=== PATIENT | male | born 1950 | race Caucasian/White ===

== ENCOUNTER → 2023-11-27 08:11 | Outpatient (REF) | payer MEDICARE, SELFPAY | LOC: RAD 08:11 | PROVIDERS: ATTENDING PHYSICIAN Podiatrist Foot Surgery; FAMILY PHYSICIAN Family Medicine | DX: M86.179 Other acute osteomyelitis, unspecified ankle and foot (principal) | CPT/HCPCS: 78315; A9503 ==

== ENCOUNTER → 2023-11-29 07:03 | Outpatient (REF) | payer MEDICARE, SELFPAY | LOC: RAD 07:03 | PROVIDERS: ATTENDING PHYSICIAN Podiatrist Foot Surgery; FAMILY PHYSICIAN Family Medicine | DX: M86.179 Other acute osteomyelitis, unspecified ankle and foot (principal) | CPT/HCPCS: 78803; A9569 ==

== ENCOUNTER 2024-03-02 21:11 | Emergency (ER) | payer SELFPAY ==
[2024-03-02 21:13] VITALS: BP 200/93; BMI 30.3
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
== END 2024-03-02 22:18 | disposition home or self-care (01) ==
LOC: EMR 21:11
PROVIDERS: EMERGENCY PHYSICIAN Student in an Organized Health Care Education/Training Program; FAMILY PHYSICIAN Family Medicine
DX: M54.6 Pain in thoracic spine (principal); V43.52XA Car driver injured in collision with other type car in traffic accident, initial encounter; I10 Essential (primary) hypertension; E78.00 Pure hypercholesterolemia, unspecified; E11.36 Type 2 diabetes mellitus with diabetic cataract; H26.9 Unspecified cataract; Z88.8 Allergy status to other drugs, medicaments and biological substances
CPT/HCPCS: 99283; 72070

== ENCOUNTER 2024-05-13 12:41 | Inpatient (IN) | payer MEDICARE, SELFPAY ==
[2024-05-13] VITALS (13 sets, daily range): BP systolic 137–189; BP diastolic 62–82; BMI 30.6; BMI 30.1
--- NOTE | 2024-05-13 10:37 | EDRN ---
Rhonda RACHEL in room w/ pt.
--- NOTE | 2024-05-13 10:41 | ED.GENMED ---
History of Present Illness
General
Chief Complaint: Skin Problem
Source: patient
Time Seen by Provider: 05/13/24 10:13
History of Present Illness
History of Present Illness:
73yoM with a history of insulin dependent diabetes, hypertension, hyperlipidemia, and CKD presenting for evaluation of a left foot infection. Patient started with a wound to his L 3rd toe about a week ago. He was seen by his chartered wealth manager, Dr. Guardado, 3
days ago and was started on clindamycin. Patient has not had any improvement on the antibiotics and is now having worsening swelling. He was sent to the ED for osteomyelitis with plan for surgery later today. Patient denies any fevers or chills.
Past History
Past History
ED Past Medical History: HTN, Hypercholesterolemia and NIDDM
ED Past Surgical History: Orthopedic and Other (Cataract)
Social History
Tobacco: Non-smoker
Alcohol: None
Drug: None
Personal:
Living: with family
Employment: Employed
Family History
Family History: Hypertension
Phy Exam
General Physical Exam
General Presentation: well appearing and no apparent distress
General age: appears stated age
General Skin: warm and dry
General Habitus: normal
General Mental: alert
ENT Exam
ENT Exam: normocephalic
Pulmonary Exam
Pulmonary Exam: no respiratory distress
[place] Coma Scale
Eye Opening: Spontaneous
Verbal Response: Oriented
Motor Response: Obeys Commands
GCS Total Score: 15
Musculoskeletal Exam
Musculoskeletal Exam: other (L 3rd toe with a wound to the distal aspect of the digit as well as diffuse swelling to toe. No crepitus or fluctuance. No tenderness although patient has baseline neuropathy. 2+ DP pulse. )
Skin Exam
Skin Exam: warm/dry
Psychiatric Exam
Psychiatric Exam: normal mood/affect
Sepsis
Sepsis Screening
Sepsis Assessment: Sepsis Ruled Out
Sepsis Screen
Sepsis Screen: Sepsis Ruled Out
Date: 05/13/24
Time: 15:10
Course
Orders/Labs/Results
Orders:
Orders
05/13/24 Breakfast
NPO
Allow oral meds: Yes
Allow clear liquids: No
05/13/24 10:40
0.9% Sodium Chloride 500 ml [Nss] 500 ml IV BOLUS
Piperacillin/Tazo 4.5 Gram [Zosyn] 4.5 gram in 100 ml IV NOW
CR Foot - Left Min 3 Views Urgent
Comment:
Reason For Exam: 3rd toe infection
05/13/24 11:08
CRP [C-Reactive Protein] Urgent
Complete Blood Count/With Diff Urgent
Comprehensive Metabolic Panel Urgent
ESR [Erythrocyte Sed Rate] Urgent
Blood Culture Urgent
GIO Source: Blood/Venous
Specimen Description:
05/13/24 11:28
Blood Culture Routine
GIO Source: Blood/Venous
Specimen Description:
05/13/24 12:09
Vancomycin [Vancocin] 1,500 mg 0.9% Sodium Chloride [Nss] 20 ml 0.9% Sodium Chloride 250 ml [Nss] 250 ml IV NOW
05/13/24 12:34
Admit/Transfer Patient As Directed
Co-Sign Provider:
Level of Care: Inpatient admission
Assign to:: Medical/Surgical
Physician / Group: danitza
Diagnosis: osteomyelitis
Reason for Hospitalization: osteomyelitis
Expected length of stay greater than two midnights?: Yes
ELOS- Estimated Length of Stay in days: 3
I certify the patient meets the requirements for IP care: Yes
05/13/24 12:35
PRN Pain Medication Management As Directed
May give lesser potent ordered pain med per pt: Yes
preference::
Protocol:: Medication orders for pain may be administered in a
manner that supports deferring to patient preference
when the pt is:
- Requesting an ordered lesser potent pain medication.
Least to most potent pain medications are defined
as: acetaminophen < NSAID < tramadol < opioids
(morphine, oxycodone, hydromorphone).
- Requesting a lesser dose of the same medication IF
ORDERED.
- Requesting a less intrusive route of administration
if both routes are prescribed by the provider (PO <
IV).
05/13/24 12:36
Code Status As Directed
Resuscitation Status: Full Code
05/13/24 13:40
Acetaminophen [Tylenol] 650 mg PO Q4HPRN PRN
Dextrose 50%-Water [Dextrose 50% Syringe] 12.5 grams IV [id number] PRN
Glucagon [GlucaGen] 1 mg IM PRN PRN
05/13/24 13:40
INFECTIOUS DISEASE CONSULT Routine
Consulting Provider: Asya Morales
Was physician already notified: Yes
PODIATRY CONSULT Routine
Consulting Provider: Charly Guardado
Was physician already notified: Yes
Activity As Directed
Activity Level: Out of Bed-Early Mobility
Bedside Glucose Monitoring As Directed
Frequency: AC&HS
Additional Instructions:: Change to q6h if pt on TPN, tube feeding or not eating
Intake/ Output As Directed
Frequency: Per unit guidelines
Vital Signs As Directed
Frequency: Per unit guidelines
Lower Ext Arterial & LIDYA US [US Periph Art LOWER Ext w LIDYA] Routine
Comment:
Reason For Exam: wounds
DX Deep Vein Thrombosis Video Routine
05/13/24 14:00
VANCOMYCIN Pharmacy to Dose [VANCOCIN Pharmacy to Dose] 1 each Pharmacy To Prepare [Call Pharmacy To Prepare] 0 ml IV PER PROTOCOL
05/13/24 16:00
Clonidine [Catapres] 0.1 mg PO TID
05/13/24 16:30
Insulin Aspart Corrective Low [Novolog Flexpen-Low Resistance] See Protocol SC AC
05/13/24 18:00
Atorvastatin [Lipitor] 40 mg PO QPM
05/13/24 20:00
Heparin 5,000 units SC Q12
05/14/24 06:00
Basic Metabolic Panel IN AM
Complete Blood Count/No Diff IN AM
Glycohemoglobin (HgbA1c) IN AM
05/14/24 08:00
Dapagliflozin [Farxiga] 10 mg PO DAILY
Hydrochlorothiazide [Oretic] 25 mg PO DAILY
05/15/24 06:00
Basic Metabolic Panel IN AM
Complete Blood Count/No Diff IN AM
05/16/24 06:00
Basic Metabolic Panel IN AM
Complete Blood Count/No Diff IN AM
05/17/24 06:00
Basic Metabolic Panel IN AM
Complete Blood Count/No Diff IN AM
05/18/24 06:00
Basic Metabolic Panel IN AM
Complete Blood Count/No Diff IN AM
Abnormal Lab Results
05/13/24
11:08
RBC 3.34 L 10^6/uL
(4.70-6.10)
Hgb 10.1 L g/dL
(13.0-18.0)
Hct 29.7 L %
(39.0-52.0)
MPV 10.7 H fL
(7.4-10.4)
ESR 59 H mm/hour
(0-20)
BUN 76 H mg/dl
(9-20)
Creatinine 3.5 H mg/dL
(0.7-1.3)
Glucose 138 H mg/dl
(70-99)
Albumin 2.6 L g/dl
(3.5-5.0)
05/13/24 11:08
05/13/24 11:08
Vital Signs
Initial and Last Documented VS:
Initial Vital Signs
Temp Pulse Resp BP Pulse Ox
98.0 F 56 16 137/67 98
05/13/24 09:27 05/13/24 09:27 05/13/24 09:27 05/13/24 09:27 05/13/24 09:27
Last Documented Vital Signs
Temp Pulse Resp BP Pulse Ox
97.8 F 59 18 189/79 95
05/13/24 13:57 05/13/24 13:57 05/13/24 13:57 05/13/24 13:57 05/13/24 14:48
MDM/Problems Addressed
Differential Diagnosis Includes:
73yoM here with a L 3rd toe infection. Sent in by podiatry for osteomyelitis with plan for OR later today. Hx of IDDM. No f/c. VSS. He is well appearing in no distress. There is diffuse swelling to the digit on exam with a distal wound. LLE is
neurovascularly intact. Differential diagnosis includes but is not limited to: diabetic foot infection, osteomyelitis, cellulitis, doubt NSTI
Initial ED plan: Check CBC, CMP, ESR/CRP, blood cultures, and left foot x-rays. IV vancomycin and Zosyn. He will require hospitalization.
*Critical Care Note
Total Time (30-74mins, 75-104mins- exclusive of procedures): Not Applicable
ED Attending Note
-
Portions of this chart may have been created with voice recognition software.� Occasional wrong word or��sound alike� substitutions may have occurred due to the inherent limitations of voice recognition software.
Discharge Plan
Departure
Patient Disposition: Admit
Date of Disposition: 05/13/24
Time of Disposition: 11:47
Presentation/result/management discussed w/ accepting MD/DO: Hospitalist
Discharge Problem:
Acute osteomyelitis of toe of left foot
Interventions
Interventions:
*Risk Screen - Suicide Last Done: 05/13/24 09:27
*General Assessment Last Done: 05/13/24 11:29
*Neglect/Abuse Screening Last Done: 05/13/24 09:27
ED- Fall Risk Assessment Last Done: 05/13/24 11:29
*ED COVID-19 Vaccine History Last Done: 05/13/24 14:18
*Nursing Disposition Last Done: 05/13/24 13:40
ED-Skin Assessment Last Done: 05/13/24 11:30
Discharge Date and Time
Discharge Date/Time: 05/13/24 13:41
[2024-05-13 11:36] LABS: % Basophils 0.9 % (0-2); % Immature Granulocytes 0.4 % (0-0.5); % Monocytes 8.8 % (1.7-9.3); % Neutrophils 60.9 % (42.2-75.2); Absolute Basophils 0.1 10^3/uL (0-0.2); Absolute Eosinophils 0.2 10^3/uL (0-0.7); Absolute Lymphocytes 1.5 10^3/uL (1.2-3.4); Absolute Monocytes 0.5 10^3/uL (0.1-0.6); Absolute Neutrophils 3.4 10^3/uL (1.4-6.5); Hematocrit 29.7 % (39.0-52.0); Hemoglobin 10.1 g/dL (13.0-18.0); Mean Corpuscular Hgb 30.2 pg (27.0-31.0); Mean Corpuscular Volume 88.9 fL (80.0-94.0); Mean Platelet Volume 10.7 fL (7.4-10.4); Nucleated Red Blood Cells % 0 % (-); Platelet Count 228 10^3/uL (130-400); Red Blood Cell Count 3.34 10^6/uL (4.70-6.10); Red Cell Dist. Width 12.5 % (11.5-14.5); White Blood Cell Count 5.7 10^3/uL (4.8-10.8)
[2024-05-13 11:43] LABS: Erythrocyte Sed Rate 59 mm/hour (0-20)
[2024-05-13 11:44] LABS: ALT (SGPT) 18 U/L (0-50); AST (SGOT) 24 U/L (17-59); Albumin 2.6 g/dl (3.5-5.0); Alkaline Phosphatase 64 U/L (38-126); Blood Urea Nitrogen 76 mg/dl (9-20); Calcium 9.1 mg/dl (8.4-10.2); Carbon Dioxide 25 mmol/L (22-30); Chloride 104 mmol/L (98-107); Estimated Creatinine Clearance 23 ml/min; Glucose 138 mg/dl (70-99); Potassium 4.5 mmol/L (3.5-5.1); Sodium 141 mmol/L (135-145); Total Bilirubin 0.5 mg/dl (0.2-1.3); Total Protein 6.9 g/dl (6.3-8.2); eGFR 17.78
[2024-05-13] MEDS: NSS 500 IV (11:55)
[2024-05-13] MEDS: ZOSYN 100 IV (11:57)
--- NOTE | 2024-05-13 11:59 | EDRN ---
Pt OOB to BR at this time.
--- NOTE | 2024-05-13 12:11 | HPS.HSE ---
Family Physician
-
Family Physician: Sunday Regan
Chief Complaint
-
3rd digit wound
History of Present Illness
73yoM with a history of insulin dependent diabetes, hypertension, hyperlipidemia, and CKD presenting for evaluation of a left foot infection.two weeks, he noticed a calus, which then turned to blister and peeled off. but he noticed worsening redness
and welling. he was started on clindamycin by his podiatry with no relief in his symptoms. patient drained any drainage. denied fever, chills, ESPINOSA, dizzy or syncopal episode. denied chest pain, sob.denied abdominal pain,n,v,d. denied dysuria or
hematuria.
x ray with osteomyelitis. he was sent in for surgical intervention by his podiatry.
Medical History
Past Medical History
Past Medical History: Reports Other
Additional Past Medical History:
type 2 DM
CKD stage 1v
HTN
peripheral neuropathy
Past Surgical History: Reports Other
Additional Past Surgical History:
amputation of right great toe
cataract surgery
left hand amputation repair
right 2nd toe amputation
Social History
Tobacco: Non-smoker
Alcohol: None
Drug: None
Personal: Single
Living: With Family
Family History
Family History: Not pertinent
Allergies / Home Medications
Allergies reflects when Allergies were last updated in [employer].
Home Medications with original date entered in [employer]
Allergy/Medication List:
Allergies
Allergy/AdvReac Type Severity Reaction Status Date / Time
amlodipine Allergy Swelling Verified 05/13/24 09:28
Home Medications
atorvastatin 40 mg tablet 40 mg PO QPM 03/30/16
clonidine HCl 0.1 mg tablet 0.1 mg PO TID #0 tabs 07/18/23
hydrochlorothiazide 25 mg tablet 25 mg PO DAILY #30 tabs 12/12/23
clindamycin HCl 300 mg capsule 300 mg PO TID 05/13/24
dapagliflozin propanediol 10 mg tablet (Farxiga) 10 mg PO DAILY 05/13/24
ibuprofen 200 mg tablet (Advil) 200 mg PO BIDPRN PRN mild pain 05/13/24
insulin glargine 100 unit/mL (3 mL) subcutaneous pen (Lantus Solostar U-100 Insulin) 18 unit SC HS 05/13/24
insulin lispro 100 unit/mL subcutaneous solution (Humalog U-100 Insulin) 10 sliding scale dose SC AC 05/13/24
Review of Systems
-
Constitutional: Reports No Symptoms
EENT: Reports No Symptoms
Respiratory: Reports No Symptoms
Cardiac: Reports No Symptoms
Abdomen/GI: Reports No Symptoms
: Reports No Symptoms
Musculoskeletal: Reports No Symptoms
Skin: Reports Other (3rd digit wound swelling and redness. )
Neurological: Reports No Symptoms
Endocrine: Reports No Symptoms
Hematologic/Lymphatic: Reports No Symptoms
Psych: Reports No Symptoms
Physical Exam
Vital Signs
Vital Signs
Temp Pulse Resp BP Pulse Ox
98.0 F 57 16 180/67 98
05/13/24 09:27 05/13/24 11:29 05/13/24 11:29 05/13/24 11:29 05/13/24 11:29
Physical Exam
General: Well Developed, Well Nourished and No Apparent Distress
HEENT: NormoCephalic, Moist mucous membranes and Atraumatic
Respiratory: Clear
Cardiac: S1/S2 and Regular Rhythm; No Murmur or Rub
GI: Soft, Non Tender, Non Distended and Normal Bowel Sounds; No Organomegaly
Rectal: Deferred by Provider
Musculoskeletal: No Clubbing, No Cyanosis and No Edema
Skin: Rash and Other (right foot foot multiple toe amputation. left third digit wound)
Neuro: AO x 3 and Nonfocal/grossly intact
Psych: Calm
Laboratory Results
-
05/13/24 11:08
05/13/24 11:08
Laboratory Results
Total Bilirubin 0.5 mg/dl (0.2-1.3) 05/13/24 11:08
AST 24 U/L (17-59) 05/13/24 11:08
ALT 18 U/L (0-50) 05/13/24 11:08
Alkaline Phosphatase 64 U/L (38-126) 05/13/24 11:08
Data Reviewed
-
Diagnostic Radiology: Report Reviewed by me
Lab Data: Labs Reviewed by me
Impression/Plan
-
#left 3 rd toe wound /osteomyelitis
-failed outpatient therapy
-podiatry following likely surgical intervention today
-x ray with osteomyelitis
-iv zosyn and vanco continued
-wound care consulted
-blood culture sent from ER
-obtain arterial US
-ID consulted
#anemia of chronic disease
-hgb stable at 10.1
-no active bleeding
-ctm
#CKD stage IV
-cr 3.5
-ctm
# Essential hypertension
-Continue on home regimen of oral clonidine and morning hydrochlorothiazide
#HLD
-statin continued
# Insulin-dependent diabetes mellitus
-maintain on Lantus 10U hs
-sliding scale
-Farxiga continued
DVT PPX - heparin sq
Full code
[2024-05-13] MEDS: VANCOCIN 300 ML IV (12:42)
[2024-05-13] MEDS: VANCOCIN 300 MG IV (12:42)
--- NOTE | 2024-05-13 12:57 | W.PN.UPDATE ---
Update Note
Progress Note Update
This is an addendum to the H&P written by Emelia Nelson on 05/13/2024.� Patient seen and examined independently with CONTAINER MAKER.
73-year-old male past medical history of CKD 4, hypertension, type 2 diabetes, diabetic neuropathy, diabetic foot infections s/p amputations of left first big toe,�anxiety/depression, presenting with left foot infection with wound of left third
toe.� Foot x-ray shows osteomyelitis of the distal left third toe.
Blood cultures pending.� Vancomycin/Zosyn.� N.p.o. for surgery later by podiatry today. Reduce Insulin. ID consulted. Check arterial US.�
--- NOTE | 2024-05-13 13:12 | WOUNDNOTE ---
WOUND/Skin Care Note: pt identified by name and .
L toe #3
L toe #3
--- NOTE | 2024-05-13 13:43 | PHA.VAN.IN ---
Assessment
- Assessment
Renal Function: Unknown baseline
Concomitant Antimicrobials: piperacillin/tazobactam
Plan
- Plan
Initial / Loading Dose: 1500mg - 05/13 12:42 PLUS additional 500mg to complete 2g load
Maintenance Regimen: dosing by level
Monitoring: random 05/14 06
Pharmacokinetics Vancomycin I
- -
Patient Age: 73
Patient Sex: Male
Vancomycin Day #: 1
Indication: Skin And Soft Tissue
Requesting Provider: Cristina Nelson
Pertinent Antimicrobial Allergies:
no pertinent antibiotic allergies
Height / Weight:
Height 5 ft 11 in
Actual Weight 99.4 kg
Pertinent Past Medical History: BMI ~30.5, DM, CKD
- Vital Signs / Lab Results
Temp Pulse Resp BP Pulse Ox
98.0 F 54 16 179/63 100
05/13/24 09:27 05/13/24 12:12 05/13/24 12:12 05/13/24 12:12 05/13/24 12:12
Lab Results - Hematology
05/13/24
11:08
WBC 5.7
Lab Results - Chemistry
05/13/24
11:08
BUN 76 H
Creatinine 3.5 H
Estimated Creat Clear 23
Albumin 2.6 L
--- NOTE | 2024-05-13 14:46 | CON.ID ---
Consultation
-
Date/Time Consultation Requested: 05/13/24 13:40
Date/Time Consultation Performed: 05/13/24 14:46
Requesting Provider: Omar HAILE
Performing Provider: Dr Davis
Reason for Consultation: diabetic foot infection complicated by osteomyelitis
Chief Complaint / Past History
Chief Complaint
third digit wound
History of Present Illness
Mr Herman is a 73 year old male with history of DM complicated by peripheral neuropathy and CKD4 who presented here today for a two week history of left foot swelling. Two weeks ago he had a callous on the left 3rd digit, developed blister which he
peeled off, then with increased redness, swelling but no drainage. Started on clindamycin 300 mg PO QID without improvement. No fevers, chills. Followed up with his cpa tax and found to have changes suggestive of osteomyelitis on xray and was
referred here for surgical intervention
Since arrival here he has been afebrile, running hypertensive, wbc 5.7, hgb 10.1, plt 228, no L shift, esr 59,cr 3.5 which is his baseline, na 141, glucose 138, a1c pending, foot xray: osteo L 3rd toe, blood cultures x2 are in progress, patient is
currently on:
Past History
Additional Past Medical History:
type 2 DM
CKD stage 1v
HTN
peripheral neuropathy
Additional Past Surgical History:
amputation of right great toe
cataract surgery
left hand amputation repair
right 2nd toe amputation
Allergy History:
amlodipine Allergy (Verified 05/13/24 09:28)
Swelling
Medications Reviewed: Yes
Social History
Tobacco: Non-Smoker
Alcohol: None
Drug: None
Family History
Family History: Not Pertinent
Review of Systems
Review of Systems
General: Negative Fever or Chills
All systems: All other systems were reviewed and were negative
Vital Signs
Temp Pulse Resp BP Pulse Ox
97.8 F 59 18 189/79 97
05/13/24 13:57 05/13/24 13:57 05/13/24 13:57 05/13/24 13:57 05/13/24 13:57
Physical Exam
Physical Exam
Constitutional: No Acute Distress, Chronically Ill and Obese
Cardiovascular: Regular Rate and S1/S2; Negative Murmur or Rub
Pulmonary: Clear and Symmetric; Negative Wheezes, Rales or Rhonchi
Gastrointestinal: Soft, Non Tender, Non Distended and Normal Bowel Sounds
Extremities: Other (see in PACU; dressing clean, dry, intact)
Skin: Warm and Dry; Negative Rash or Jaundice
Lab / Diagnostic Study Results
05/13/24 11:08
05/13/24 11:08
Abs Immat Gran (auto) 0.0 10^3/uL (0-0.05) 05/13/24 11:08
Absolute Neuts (auto) 3.4 10^3/uL (1.4-6.5) 05/13/24 11:08
Absolute Lymphs (auto) 1.5 10^3/uL (1.2-3.4) 05/13/24 11:08
Absolute Monos (auto) 0.5 10^3/uL (0.1-0.6) 05/13/24 11:08
Absolute Basos (auto) 0.1 10^3/uL (0-0.2) 05/13/24 11:08
Immature Gran % 0.4 % (0-0.5) 05/13/24 11:08
Neutrophils % 60.9 % (42.2-75.2) 05/13/24 11:08
Lymphocytes % 26.0 % (20.5-51.1) 05/13/24 11:08
Monocytes % 8.8 % (1.7-9.3) 05/13/24 11:08
Eosinophils % 3.0 % (0-6) 05/13/24 11:08
Basophils % 0.9 % (0-2) 05/13/24 11:08
ESR 59 mm/hour (0-20) H 05/13/24 11:08
C-Reactive Protein 5.40 mg/L (0.0-10.00) 05/13/24 11:08
Microbiology Results
Micro:
05/13/24 11:28 Blood Culture - Pending
Blood/Venous
05/13/24 11:08 Blood Culture - Pending
Blood/Venous
Assessment / Plan
Left 3rd toe diabetic foot Infection
Osteomyelitis of the 3rd digit
DM2
Neuropathy
CKD4
Obesity
- blood cultures x2 are in progress
- arterial US pending
- agree with vancomycin
- start unasyn stop zosyn
- s/p amputation today - discussed with Dr Guardado, I believe we have surgical cure of osteomyelitis, will likely switch to orals tomorrow to complete a course of therapy for cellulitis
--- NOTE | 2024-05-13 14:47 | PTCARENOTE ---
Received patient from ED via stretcher. AAOx3, ambulated to bed without assistance. Assessed and oriented to room. Call ford in close reach.
[2024-05-13 14:54] LABS: Glucose - Point of Care 136 mg/dl (70-99)
--- NOTE | 2024-05-13 15:59 | W.PN.UPDATE ---
Update Note
Progress Note Update
pt seen
dressing cdi
no pain
a.p sp amp 3rd toe left foot--stable
appears to be clean after resection
probable surgical cure
nwb left foot, pt should have surgical shoe
will round tomorrow, await C&S and rec po abx upon dc
pt consult
[2024-05-13 16:26] LABS: Glucose - Point of Care 130 mg/dl (70-99)
[2024-05-13] MEDS: NOVOLOG FLEXPEN-LOW RESISTANCE SC (17:37)
[2024-05-13] MEDS: LIPITOR 40 MG PO (17:38)
[2024-05-13] MEDS: CATAPRES 0.1 MG PO ×2 (17:38→23:16)
[2024-05-13] MEDS: UNASYN IV (17:38)
[2024-05-13] MEDS: VANCOCIN HCL 500 MG 100 IV (18:37)
[2024-05-13 19:48] LABS: Glucose - Point of Care 302 mg/dl (70-99)
[2024-05-13] MEDS: NOVOLOG FLEXPEN 8 UNITS SC (20:23)
[2024-05-13 23:10] LABS: Glucose - Point of Care 286 mg/dl (70-99)
[2024-05-13] MEDS: LANTUS 0.18 UNITS SC (23:17)
[2024-05-14] MEDS: TYLENOL 650 MG PO (00:15)
[2024-05-14 03:55] VITALS: BP 153/61
[2024-05-14] MEDS: UNASYN IV ×2 (04:29→16:42)
[2024-05-14 05:11] VITALS: BP 153/61
[2024-05-14 05:37] LABS: Hematocrit 28.5 % (39.0-52.0); Hemoglobin 9.9 g/dL (13.0-18.0); Mean Corp Hgb Conc. 34.7 g/dL (33.0-37.0); Mean Corpuscular Hgb 30.4 pg (27.0-31.0); Mean Corpuscular Volume 87.4 fL (80.0-94.0); Platelet Count 221 10^3/uL (130-400); Red Blood Cell Count 3.26 10^6/uL (4.70-6.10); Red Cell Dist. Width 12.2 % (11.5-14.5); White Blood Cell Count 8.3 10^3/uL (4.8-10.8)
[2024-05-14 06:01] LABS: Blood Urea Nitrogen 71 mg/dl (9-20); Calcium 8.7 mg/dl (8.4-10.2); Carbon Dioxide 21 mmol/L (22-30); Chloride 104 mmol/L (98-107); Estimated Creatinine Clearance 20 ml/min; Glucose 203 mg/dl (70-99); Potassium 5.1 mmol/L (3.5-5.1); Sodium 138 mmol/L (135-145); eGFR 17.19
[2024-05-14 07:05] VITALS: BP 162/72
--- NOTE | 2024-05-14 07:26 | W.PN.HOSP.TC ---
Addendum entered and electronically signed by John Harrell MD 05/14/24 16:34:
s/p left foot 3rd toe amputation
-currently on vanc/unasyn per ID
-culture data growing staph, unsure if mrsa/mssa.
- -can dc unasyn. continue vanc for now. check trough level
- - -if planning on dc'ing home could send home on dox and mar or doxy alone
- - - -would appreciate ID input
-pod following, place surgical boot, nwb
32mins spent discussing discharge with consultants and chart reviews.
Original Note:
Today's Communication/Plan
-
Patient appears to be at or near his baseline. Awaiting recommendations from infectious diseases in regards to possible need of antibiotics following discharge. If the patient is medically stable, cleared by infectious diseases and podiatry, and
outpatient medication recommendations complete we will move forward with discharge planning today.
Assessment / Plan
Assessment / Plan
HPI: Patient is a 73-year-old male with a history of insulin-dependent diabetes, hypertension, hyperlipidemia, and chronic kidney disease who presented to the emergency department for evaluation of a left foot infection. The wound started on his
third left toe about a week ago. He noticed a callus which then turned into a blister and then peeled off but instead of healing it started to get worsening and red with swelling. He was seen by his telephone plant power operator Dr. Flores 3 days prior to his
presentation to the emergency department and was started on clindamycin. Unfortunately, the patient had not had any improvement with the antibiotics and presented to the emergency department with increasingly worsening swelling. He was
subsequently sent to the emergency department for osteomyelitis with a plan for surgery later that day. An x-ray conducted down in the emergency department was positive for osteomyelitis.
Impression/Plan:
-Osteomyelitis of the third left distal phalange: S/p amputation
Patient failed outpatient therapy with clindamycin
Surgical intervention with podiatry -s/p amputation
X-ray conducted in the emergency department positive for osteomyelitis
IV Zosyn and vancomycin continue
Wound care consult
Wound culture sent from the emergency department
Consider arterial ultrasound
Appreciate infectious diseases consult
Education provided for diabetic foot ulcers
Surgical wound appears clean after procedure
Awaiting recommendations from infectious diseases in regards to antibiotic management following his procedure
-Anemia of chronic disease:
Hemoglobin is stable at 9.9
Continue to trend H&H and follow labs
-CKD stage IV:
Patient's EGFR is 17.19
Patient creatinine at 3.6
-Essential hypertension:
Continue on home medication regimen
-Hyperlipidemia:
Continue statin medication
-Insulin-dependent diabetes mellitus:
Patient started on a high sliding scale
Farxiga continue
DVT prophylaxis: Heparin subcu
FULL CODE STATUS
Anticipated Discharge: Within 24 hours
Subjective/Interval History
-
Date of Service: May 14, 2024
Met with patient at the bedside. She had a long history of his active life and that he has been contending with his diabetes for over 30 years. Patient states that he does his best to take care of his feet but is active lifestyle unfortunately has
these consequences.
Objective Data
-
Labs:
Laboratory Results
05/14/24
05:16
WBC 8.3
Hgb 9.9 L
Hct 28.5 L
Plt Count 221
Sodium 138
Potassium 5.1
Chloride 104
Carbon Dioxide 21 L
BUN 71 H
Creatinine 3.6 H
Glucose 203 H
Calcium 8.7
Vital Signs:
Vital Signs
Temp Pulse Resp BP Pulse Ox
98.6 F 59 20 153/61 97
05/14/24 03:55 05/14/24 03:55 05/14/24 03:55 05/14/24 03:55 05/14/24 03:55
I&O
05/13/24 05/14/24 05/15/24
06:59 06:59 06:59
Intake Total 1273 / 1273
Output Total 1550 / 1550
Balance -277 / -277
Review of Systems
-
History Source: Patient
All other systems: Reviewed and negative
Constitutional: Reports No Symptoms
EENT: Reports No Symptoms Reported
Respiratory: Reports No Symptoms
Cardiac: Reports No Symptoms
Abdomen/GI: Reports No Symptoms
Breast: Reports No Symptoms
Genitourinary: Reports No Symptoms
Musculoskeletal: Reports No Symptoms
Skin: Reports No Symptoms
Neuro: Reports No Symptoms
Endocrine: Reports No Symptoms
Hematologic / Lymphatic: Reports No Symptoms
Allergy / Immunology: Reports No Symptoms
Physical Exam
-
General: Well Developed, Well Nourished, No Apparent Distress and Comfortable
HEENT: Normocephalic, Atraumatic and Moist Mucous Membranes
Respiratory: Clear to Auscultation
Cardiac: Regular Rhythm and S1/S2
Breast: Deferred by me
GI: Soft, Nontender, Nondistended and Normal Bowel Sounds
Rectal: Deferred by Provider
Genito-urinary: Deferred by me
Musculoskeletal: No Clubbing, No Cyanosis and No Edema
Skin: Warm, Dry and Rash
Neuro: Awake, Alert, Oriented and AO x 3
Psych: Calm
[2024-05-14 07:44] LABS: Glucose - Point of Care 198 mg/dl (70-99)
[2024-05-14] MEDS: FARXIGA 10 MG PO (07:48)
[2024-05-14] MEDS: NOVOLOG FLEXPEN-LOW RESISTANCE 1 UNITS SC (07:49)
[2024-05-14] MEDS: CATAPRES 0.1 MG PO ×2 (07:49→16:42)
[2024-05-14] MEDS: ORETIC 25 MG PO (07:49)
[2024-05-14 08:05] LABS: Glycohemoglobin (HgbA1c) 6.4 % (4.0-5.6)
[2024-05-14 11:40] VITALS: BP 172/69; PULSE 58; O2SAT 97
[2024-05-14 12:37] LABS: Glucose - Point of Care 227 mg/dl (70-99)
[2024-05-14] MEDS: NOVOLOG FLEXPEN-LOW RESISTANCE SC (13:32)
--- NOTE | 2024-05-14 13:49 | PHA.VAN.FU ---
Addendum entered and electronically signed by Vani Galo RPH 05/14/24 14:05:
Note: trough today is available as a scanned in report from [facility] as internal vancomycin reagent
Original Note:
Vancomycin Assessment / Plan
- Assessment
Renal Function: Stable
WBC's are: WNL
In the past 24 hrs, patient has been: Afebrile
Concomitant Antimicrobials: ampicillin/sulbactam
- Assessment - Therapeutic Drug Monitoring
Random Level: 18.9 - drawn ~10H after divided 2g load
- Dosing Plan
Dosing by Level: Hold off on dosing today
- Monitoring Plan
Random Level: 05/15 600
- Follow Up
Pharmacy will continue to follow.
Vancomycin Follow UP
- -
Patient Age: 73
Patient Sex: Male
Vancomycin Day #: 2
Indication: Skin And Soft Tissue
Requesting Provider: Cristina Nelson / Ryan
Pertinent Antimicrobial Allergies:
no pertinent antibiotic allergies
Height / Weight:
Height 5 ft 11 in
Actual Weight 97.778 kg
Pertinent Past Medical History: BMI ~30.5, DM, CKD
- Vital Signs / Lab Results
Temp Pulse Resp BP Pulse Ox
99.2 F 57 20 162/72 96
05/14/24 07:05 05/14/24 07:05 05/14/24 07:05 05/14/24 07:05 05/14/24 08:00
Lab Results - Hematology
05/13/24 05/14/24
11:08 05:16
WBC 5.7 8.3
Lab Results - Chemistry
05/13/24 05/14/24
11:08 05:16
BUN 76 H 71 H
Creatinine 3.5 H 3.6 H
Estimated Creat Clear 23 20
Albumin 2.6 L
Microbiology Results
05/13/24 15:41 Tissue Culture - Preliminary
Toe Staphylococcus aureus
Gram Stain - Preliminary
05/13/24 15:30 Wound Culture - Preliminary
Toe Staphylococcus aureus
Gram Stain - Preliminary
05/13/24 15:30 Anaerobic Culture - Preliminary
Toe Culture pending. Anaerobic cultures are examined after 3
days incubation. Additional information to follow.
05/13/24 11:28 Blood Culture - Preliminary
Blood/Venous No Growth in 24 hours- Final report to follow
05/13/24 11:08 Blood Culture - Preliminary
Blood/Venous No Growth in 24 hours- Final report to follow
Therapeutic Drug Monitoring
Random Vancomycin Cancelled 05/14/24 05:16
[2024-05-14] MEDS: NOVOLOG FLEXPEN-MODERATE RESISTANCE 3 UNITS SC (13:51)
[2024-05-14 15:56] VITALS: BP 168/62
--- NOTE | 2024-05-14 16:26 | W.PN.UPDATE ---
Update Note
Progress Note Update
pt seen at bedside
no pain
no f.cnbs
dresingcdi
vasc intact
derm toe warm, no cellulitis' no pus
infection resolving
sutures intact
+staph
a/p s/p amp 3rd toe left---stable for dc
nwb left foot/walker
keep dry/dont change bandage
/monday
--- NOTE | 2024-05-14 16:31 | W.PN.ID1 ---
Date of Service
Date of Service: May 14, 2024
Today's Communication
- c/w vancomycin
- c/w unasyn
- continue IV antibiotics while inpatient, patient stable for dc from ID perspective. If dc'd before cultures are finalized then I will follow cultures and call patient if a change is needed. On dc can switch to doxycycline 100 mg PO BID and
augmentin 500/125 mg PO BID for 7 more days.
AW
Assessment / Plan
Left 3rd toe diabetic foot Infection
Osteomyelitis of the 3rd digit
DM2
Neuropathy
CKD4
Obesity
- blood cultures x2 are in progress. no growth to date
- arterial US small vessel disease
- tissue cultures from resected tissue, not margin, with s aureus thus far, anticipate polymicrobial cultures
- s/p amputation 05/13 - I believe we have surgical cure of osteomyelitis
- c/w vancomycin
- c/w unasyn
- continue IV antibiotics while inpatient, patient stable for dc from ID perspective. If dc'd before cultures are finalized then I will follow cultures and call patient if a change is needed. On dc can switch to doxycycline 100 mg PO BID and
augmentin 500/125 mg PO BID for 7 more days.
AW
Chief Complaint
-: Other (diabetic foot infection)
Subjective / Review of Systems
afebrile
no complaints
awaiting podiatry for first post op dressing take down
Vital Signs / Physical Exam
Vital Signs
Vital Signs
Temp Pulse Resp BP Pulse Ox
99 F 56 20 168/62 98
05/14/24 15:56 05/14/24 15:56 05/14/24 15:56 05/14/24 15:56 05/14/24 15:56
Physical Exam
Constitutional: No Acute Distress
Cardiovascular: Regular Rate and Rub
Pulmonary: Symmetric and Non Labored
Gastrointestinal: Non Distended
Skin: Warm and Dry; Negative Rash or Jaundice
Wound: Other (awaiting podiatry for first post op dressing take down)
Objective Data
Lab Data
Lab Results
05/14/24 05:16
05/14/24 05:16
ESR 59 mm/hour (0-20) H 05/13/24 11:08
Estimated Creat Clear 20 ml/min 05/14/24 05:16
Total Bilirubin 0.5 mg/dl (0.2-1.3) 05/13/24 11:08
AST 24 U/L (17-59) 05/13/24 11:08
ALT 18 U/L (0-50) 05/13/24 11:08
Alkaline Phosphatase 64 U/L (38-126) 05/13/24 11:08
C-Reactive Protein 5.40 mg/L (0.0-10.00) 05/13/24 11:08
Most recent labs reviewed.
Micro Results:
05/13/24 15:41 Tissue Culture - Preliminary
Toe Staphylococcus aureus
Gram Stain - Preliminary
05/13/24 15:30 Wound Culture - Preliminary
Toe Staphylococcus aureus
Gram Stain - Preliminary
05/13/24 15:30 Anaerobic Culture - Preliminary
Toe Culture pending. Anaerobic cultures are examined after 3
days incubation. Additional information to follow.
05/13/24 11:28 Blood Culture - Preliminary
Blood/Venous No Growth in 24 hours- Final report to follow
05/13/24 11:08 Blood Culture - Preliminary
Blood/Venous No Growth in 24 hours- Final report to follow
Care Review
Plan reviewed with: Physician (Dr Paul - janno)
[2024-05-14 16:33] LABS: Glucose - Point of Care 261 mg/dl (70-99)
[2024-05-14] MEDS: LIPITOR 40 MG PO (16:42)
[2024-05-14] MEDS: NOVOLOG FLEXPEN-MODERATE RESISTANCE 5 UNITS SC (16:42)
--- NOTE | 2024-05-14 16:42 | W.DCSUMMARY ---
Documented by User: David Paul MD, Resident 05/14/24 17:13
Discharge Summary
Discharge Data
Date of Admission: 05/13/24
Date of Discharge: 05/14/24
-
Pending Results: Yes
Additional Pending Results:
Patient should follow-up on tissue culture results which are currently preliminary status.
Hospital Course
Patient is a 73-year-old male with a history of insulin-dependent diabetes, hypertension, hyperlipidemia, and chronic kidney disease who presented to the emergency department for evaluation of a left foot infection. The wound started on his third
left toe about a week ago. He noticed a callus which then turned into a blister and then peeled off but instead of healing it started to get worsening and red with swelling. He was seen by his picture frames inspector Dr. Flores 3 days prior to his presentation
to the emergency department and was started on clindamycin. Unfortunately, the patient had not had any improvement with the antibiotics and presented to the emergency department with increasingly worsening swelling. He was subsequently sent to the
emergency department for osteomyelitis with a plan for surgery later that day. An x-ray conducted down in the emergency department was positive for osteomyelitis.
Surgical podiatry conducted a amputation of the third digit on his left foot. Patient received IV Zosyn and vancomycin and wound care was consulted. A Doppler study of the lower extremities was conducted showing bilateral toe brachial indices
within normal limits there were calcified vessels noted bilaterally with no evidence of significant lower extremity arterial stenosis. Podiatry gave the patient a surgical boot that was nonweightbearing. Infectious diseases following the patient
throughout their hospital course and recommended the patient be discharged on Doxy and Augmentin p.o. twice daily for 7 days. Podiatry recommended that the patient keep the wound dry and to not change the bandage. The patient is scheduled to
follow-up with his picture frames inspector the week of his discharge. The patient believes that he is at his baseline at the present time and is ready to go home.
The patient has reached maximal benefit from this hospital stay and is appropriate for discharge. There are no barriers that would impede the patient from being safely discharged at this time. The patient has been recommended to follow-up with his
primary care provider 1 to 2 weeks following his discharge. The patient is recommended to follow-up with his picture frames inspector this week following his discharge.
Discharge Plan
-
Patient Disposition: Home (Routine Discharge)
Discharge Diagnosis/Procedures: Acute osteomyelitis of the toe of the left foot
Condition: Good
Diet: Diabetic, Carb Controlled
Activity: No restrictions
Driving Restrictions: As prior to admission
Bathing Restrictions: None
Referrals:
Sunday Regan MD [Family Provider] - in one to two weeks
Prescriptions:
New
doxycycline hyclate 100 mg capsule
100 mg PO BID 7 Days Qty: 14 0RF
amoxicillin-pot clavulanate [Augmentin] 500-125 mg tablet
1 tab PO BID 7 Days Qty: 14 0RF
Continued
atorvastatin 40 MG tablet
40 mg PO QPM
hydrochlorothiazide 25 mg Tablet
25 mg PO DAILY Qty: 30 0RF
clonidine HCl 0.1 MG tablet
0.1 mg PO TID Qty: 0 0RF
ibuprofen [Advil] 200 mg Tablet
200 mg PO BIDPRN PRN (Reason: mild pain)
insulin lispro [Humalog U-100 Insulin] 100 unit/mL Solution
10 sliding scale dose SC AC
dapagliflozin propanediol [Farxiga] 10 mg Tablet
10 mg PO DAILY
insulin glargine [Lantus Solostar U-100 Insulin] 100 unit/mL (3 mL) insulin pen
18 unit SC HS
Discontinued
clindamycin HCl 300 mg Capsule
300 mg PO TID
Discharge Orders:
Discharge Patient (As Directed); Ordered 05/14/24
Ordered By: Davdi Paul
Discharge Date and Time
Print Language: NAMIBIAN

Documented by User: John Harrell MD 05/14/24 18:03
Discharge Summary
Discharge Data
Date of Admission: 05/13/24
Date of Discharge: 05/14/24
Discharge Plan
-
Patient Disposition: Home (Routine Discharge)
Discharge Diagnosis/Procedures: Acute osteomyelitis of the toe of the left foot
Condition: Good
Diet: Diabetic, Carb Controlled
Activity: No restrictions
Driving Restrictions: As prior to admission
Bathing Restrictions: None
Referrals:
Sunday Regan MD [Family Provider] - in one to two weeks
Prescriptions:
New
doxycycline hyclate 100 mg capsule
100 mg PO BID 7 Days Qty: 14 0RF
amoxicillin-pot clavulanate [Augmentin] 500-125 mg tablet
1 tab PO BID 7 Days Qty: 14 0RF
Continued
atorvastatin 40 MG tablet
40 mg PO QPM
hydrochlorothiazide 25 mg Tablet
25 mg PO DAILY Qty: 30 0RF
clonidine HCl 0.1 MG tablet
0.1 mg PO TID Qty: 0 0RF
ibuprofen [Advil] 200 mg Tablet
200 mg PO BIDPRN PRN (Reason: mild pain)
insulin lispro [Humalog U-100 Insulin] 100 unit/mL Solution
10 sliding scale dose SC AC
dapagliflozin propanediol [Farxiga] 10 mg Tablet
10 mg PO DAILY
insulin glargine [Lantus Solostar U-100 Insulin] 100 unit/mL (3 mL) insulin pen
18 unit SC HS
Discontinued
clindamycin HCl 300 mg Capsule
300 mg PO TID
Discharge Orders:
Discharge Patient (As Directed); Ordered 05/14/24
Ordered By: David Paul
Discharge Date and Time
Print Language: NAMIBIAN
--- NOTE | 2024-05-14 17:17 | CM ---
Alert awake oriented patient who lives with his dgt Nessa who lives in a 2 story home with 2 step to enter and bed and bathroom on first floor. He is independent in all activities of daily living. changed his dressing . Offered VN pt declined
VN . said pt should follow up in Dr Marianela Guardado office.
Pt has a ride home with family.
No VN hx /No SNF hx
He uses a walker prn
Pharmacy [facility]
PCP DR Gil
PLAN Home no anticipated needs
== END 2024-05-14 19:51 | disposition home or self-care (01) | DRG 617 ==
LOC: 4 EAST ACU 12:41
PROVIDERS: Physician Assistant; Registered Nurse; ADMITTING PHYSICIAN Hospitalist; ATTENDING PHYSICIAN Hospitalist; CONSULT PHYSICIAN Podiatrist Foot Surgery; EMERGENCY PHYSICIAN Emergency Medicine; FAMILY PHYSICIAN Family Medicine; OTHER PHYSICIAN Student in an Organized Health Care Education/Training Program
PROC: 0Y6U0Z1 Detachment at Left 3rd Toe, High, Open Approach (ICD-10-PCS; 2024-05-13)
DX: E11.69 Type 2 diabetes mellitus with other specified complication (principal); M86.172 Other acute osteomyelitis, left ankle and foot; D63.1 Anemia in chronic kidney disease; N18.4 Chronic kidney disease, stage 4 (severe); E11.22 Type 2 diabetes mellitus with diabetic chronic kidney disease; E11.42 Type 2 diabetes mellitus with diabetic polyneuropathy; E11.621 Type 2 diabetes mellitus with foot ulcer; E11.628 Type 2 diabetes mellitus with other skin complications; I12.9 Hypertensive chronic kidney disease with stage 1 through stage 4 chronic kidney disease, or unspecified chronic kidney disease; L97.524 Non-pressure chronic ulcer of other part of left foot with necrosis of bone; L03.032 Cellulitis of left toe; E78.00 Pure hypercholesterolemia, unspecified; Z79.4 Long term (current) use of insulin; Z79.84 Long term (current) use of oral hypoglycemic drugs; Z79.899 Other long term (current) drug therapy
CPT/HCPCS: 88305; 88311; 73630; 80048; 80053; 82962; 83036; 85025; 85027; 85652; 86140; 87040; 87070; 87075; 87147; 87176; 87186; 87205; 93922; 93925; 96365; 97162; 99285

== ENCOUNTER 2024-06-28 16:52 | Inpatient (IN) | payer MEDICARE, SELFPAY ==
[2024-06-28 13:50] VITALS: BP 193/81
--- NOTE | 2024-06-28 14:31 | ED.GENMED ---
History of Present Illness
<Khalida Jurado MD, Resident - Last Filed: 06/28/24 14:53>
General
Chief Complaint: Musculo-Skeletal Complaint
Time Seen by Provider: 06/28/24 14:02
History of Present Illness
History of Present Illness:
73-year-old male with past medical history of hypertension, insulin-dependent diabetes, chronic kidney disease, hyperlipidemia presenting to ED with concern for osteomyelitis of the right great toe. Patient is followed by master welder and has a
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 Last week, patient noticed increased swelling and skin cracking on the plantar surface of the right great toe. He was seen by his master welder on Monday and was started on Augmentin. Patient notes
he initially had chills but resolved with antibiotic use. Denies fever and any other systemic symptoms. Per patient, swelling and redness has decreased since Monday but master welder is highly suspicious for osteomyelitis and advised him to come to
the ED. Patient had an outpatient x-ray of his right foot on Monday which he notes was not suggestive of osteomyelitis.
Past History
<Khalida Jurado MD, Resident - Last Filed: 06/28/24 14:53>
Past History
ED Past Medical History: HTN, Hypercholesterolemia and NIDDM
ED Past Surgical History: Orthopedic and Other (Cataract)
Social History
Tobacco: Non-smoker
Alcohol: None
Drug: None
Personal:
Living: with family
Employment: Employed
Family History
Family History: Hypertension
Review of Systems
<Khalida Jurado MD, Resident - Last Filed: 06/28/24 14:53>
Review of Systems
Constitutional: Reports no symptoms
EENT: Reports no symptoms
Respiratory: Reports no symptoms
Cardiac: Reports no symptoms
ABD/GI: Reports no symptoms
: Reports no symptoms
Musculoskeletal: Reports other (Swelling, redness and pain of the right great toe)
Neurological: Reports no symptoms
Endocrine: Reports no symptoms
Hematologic/Lymphatic: Reports no symptoms
Psychiatric: Reports no symptoms
<Merrill Loya MD - Last Filed: 06/28/24 15:27>
Review of Systems
All Other Systems: Not applicable
Constitutional: Reports fever and chills
Phy Exam
<Khalida Jurado MD, Resident - Last Filed: 06/28/24 14:53>
Physical Exam
Physical Exam:
GENERAL: Alert , in no apparent distress
EYE: pupils equal and reactive
NECK: Supple, no significant adenopathy.
ENT: o/p clr, mmm.
CARDIAC: Regular rate and rhythm .
LUNGS: Clear breath sounds bilaterally, no acute respiratory distress, no wheezes/rales/rhonchi
ABDOMEN: Soft, without focal tenderness, no r/g, no cvat
NEUROLOGICAL: Alert and oriented, no focal neuro deficits
SKIN: Warm and dry, skin intact.
MUSCULOSKELETAL: Amputation of the right great toe, distal second toe, and third toe. Open ulcer on the plantar surface proximal to the great toe with mild swelling, erythema and tenderness. Distal pulses present bilaterally.
PSYCH: Normal and appropriate interaction.
<Merrill Loya MD - Last Filed: 06/28/24 15:27>
Physical Exam
Physical Exam:
GENERAL: Alert and oriented in no apparent distress
EYE: Orbits normal.
NECK: Supple
CARDIAC: Regular rate and rhythm without any obvious murmurs.
LUNGS: Clear breath sounds,normal
ABDOMEN: Soft, without focal tenderness or distention
NEUROLOGICAL: Alert and oriented , grossly non-focal
SKIN: Warm and dry. Ulceration at the base of an amputated right first toe. Mild area of erythema extending dorsally to the distal first metatarsal
MUSCULOSKELETAL: No edema,no deformity.Good color
PSYCH: Normal and appropriate interaction.
Course
<Khalida Jurado MD, Resident - Last Filed: 06/28/24 14:53>
Orders/Labs/Results
Orders:
Orders
06/28/24 14:32
Ampicillin/Sulbactam 1.5 G [Unasyn] 1.5 gm 0.9% Sodium Chloride [Nss] 50 ml IV PRE PROCEDURE
06/28/24 14:36
Ampicillin/Sulbactam 1.5 G [Unasyn] 3 gm 0.9% Sodium Chloride [Nss] 50 ml IV PRE PROCEDURE
06/28/24 14:52
Basic Metabolic Panel Urgent
Complete Blood Count/With Diff Urgent
06/28/24 15:17
Ampicillin/Sulbactam 3 G [Unasyn] 3 gm 0.9% Sodium Chloride 100 ml [Nss] 100 ml IV NOW
Abnormal Lab Results
06/28/24
14:52
RBC 3.33 L 10^6/uL
(4.70-6.10)
Hgb 10.0 L g/dL
(13.0-18.0)
Hct 30.1 L %
(39.0-52.0)
MPV 11.1 H fL
(7.4-10.4)
Lymphocytes % 18.8 L %
(20.5-51.1)
BUN 81 H mg/dl
(9-20)
Creatinine 3.5 H mg/dL
(0.7-1.3)
Glucose 215 H mg/dl
(70-99)
06/28/24 14:52
06/28/24 14:52
Vital Signs
Initial and Last Documented VS:
Initial Vital Signs
Temp Pulse Resp BP Pulse Ox
98.3 F 63 16 193/81 98
06/28/24 13:50 06/28/24 13:50 06/28/24 13:50 06/28/24 13:50 06/28/24 13:50
Last Documented Vital Signs
Temp Pulse Resp BP Pulse Ox
98.3 F 63 16 193/81 98
06/28/24 13:50 06/28/24 13:50 06/28/24 14:32 06/28/24 13:50 06/28/24 13:50
<Merrill Loya MD - Last Filed: 06/28/24 15:27>
Orders/Labs/Results
Orders:
Orders
06/28/24 14:32
Ampicillin/Sulbactam 1.5 G [Unasyn] 1.5 gm 0.9% Sodium Chloride [Nss] 50 ml IV PRE PROCEDURE
06/28/24 14:36
Ampicillin/Sulbactam 1.5 G [Unasyn] 3 gm 0.9% Sodium Chloride [Nss] 50 ml IV PRE PROCEDURE
06/28/24 14:52
Basic Metabolic Panel Urgent
Complete Blood Count/With Diff Urgent
06/28/24 15:17
Ampicillin/Sulbactam 3 G [Unasyn] 3 gm 0.9% Sodium Chloride 100 ml [Nss] 100 ml IV NOW
Abnormal Lab Results
06/28/24
14:52
RBC 3.33 L 10^6/uL
(4.70-6.10)
Hgb 10.0 L g/dL
(13.0-18.0)
Hct 30.1 L %
(39.0-52.0)
MPV 11.1 H fL
(7.4-10.4)
Lymphocytes % 18.8 L %
(20.5-51.1)
BUN 81 H mg/dl
(9-20)
Creatinine 3.5 H mg/dL
(0.7-1.3)
Glucose 215 H mg/dl
(70-99)
06/28/24 14:52
06/28/24 14:52
Vital Signs
Initial and Last Documented VS:
Initial Vital Signs
Temp Pulse Resp BP Pulse Ox
98.3 F 63 16 193/81 98
06/28/24 13:50 06/28/24 13:50 06/28/24 13:50 06/28/24 13:50 06/28/24 13:50
Last Documented Vital Signs
Temp Pulse Resp BP Pulse Ox
98.3 F 63 16 193/81 98
06/28/24 13:50 06/28/24 13:50 06/28/24 14:32 06/28/24 13:50 06/28/24 13:50
<Khailda Jurado MD, Resident - Last Filed: 06/28/24 14:53>
MDM/Problems Addressed
Differential Diagnosis Includes:
Diabetic foot ulcer
R/O osteomyelitis
MDM/Problems Addressed:
- CBC, BMP
- Start unasyn
- Admit for further evaluation and management
Chronic conditions affecting care: DM
<Merrill Loya MD - Last Filed: 06/28/24 15:27>
MDM/Problems Addressed
Differential Diagnosis Includes:
Local cellulitis/ulcer to the distal right foot. Seen by podiatry who was concerned for osteomyelitis. X-ray done 3 to 4 days ago was negative. They asked for MRI IV antibiotics and admission.
<Khalida Jurado MD, Resident - Last Filed: 06/28/24 14:53>
*Critical Care Note
Total Time (30-74mins, 75-104mins- exclusive of procedures): Not Applicable
<Merrill Loya MD - Last Filed: 06/28/24 15:27>
*Pulse Oximetry
Patient hypoxic: no
<Merrill Loya MD - Last Filed: 06/28/24 15:27>
Update Note
Update Note:
Wound/cellulitis/possible osteomyelitis.
ED Attending Note
<Khalida Jurado MD, Resident - Last Filed: 06/28/24 14:53>
-
Portions of this chart may have been created with voice recognition software.� Occasional wrong word or��sound alike� substitutions may have occurred due to the inherent limitations of voice recognition software.
<Merrill Loya MD - Last Filed: 06/28/24 15:27>
ED Attending Note
Patient seen and examined by attending physician: Yes
I performed a history and physical exam of patient and discussed management with resident, I reviewed resident's note and agree with documented findings and plan of care.: Yes
ED Attending Note:
73-year-old male sent in by his master welder for ongoing infection to the right distal foot. Currently on Augmentin. Some improvement clinically at home. Symptoms started 5 to 6 days ago. Some fever and chills initially. Concern for osteomyelitis
by his master welder. Plan is for surgery tomorrow.
Discharge Plan
Departure
Patient Disposition: Admit
Date of Disposition: 06/28/24
Time of Disposition: 15:25
Presentation/result/management discussed w/ accepting MD/DO: Hospitalist
Discharge Problem:
Cellulitis/wound right foot, Chronic renal insufficiency, Possible osteomyelitis
Prescriptions:
No Action
atorvastatin 40 MG tablet
40 mg PO QPM
hydrochlorothiazide 25 mg Tablet
25 mg PO DAILY Qty: 30 0RF
clonidine HCl 0.1 MG tablet
0.1 mg PO TID Qty: 0 0RF
insulin lispro [Humalog U-100 Insulin] 100 unit/mL Solution
10 sliding scale dose SC AC
dapagliflozin propanediol [Farxiga] 10 mg Tablet
10 mg PO DAILY
insulin glargine [Lantus Solostar U-100 Insulin] 100 unit/mL (3 mL) insulin pen
18 unit SC HS
aspirin 325 mg Tablet
325 mg PO DAILYPRN PRN (Reason: MILD PAIN)
amoxicillin-pot clavulanate [Augmentin] 875-125 mg Tablet
1 tab PO BID
Referrals:
Sunday Regan MD [Family Provider] -
Interventions
Interventions:
*Risk Screen - Suicide Last Done: 06/28/24 13:50
*General Assessment Last Done: 06/28/24 13:50
*Neglect/Abuse Screening Last Done: 06/28/24 13:50
ED-Musculoskeletal Assessment Last Done: 06/28/24 14:33
Discharge Date and Time
Print Language: BULGARIAN
[2024-06-28 14:46] VITALS: BMI 30.7
[2024-06-28 15:01] LABS: % Basophils 0.4 % (0-2); % Eosinophils 2.5 % (0-6); % Immature Granulocytes 0.3 % (0-0.5); % Lymphocytes 18.8 % (20.5-51.1); % Monocytes 8.4 % (1.7-9.3); % Neutrophils 69.6 % (42.2-75.2); Absolute Eosinophils 0.2 10^3/uL (0-0.7); Absolute Lymphocytes 1.3 10^3/uL (1.2-3.4); Absolute Monocytes 0.6 10^3/uL (0.1-0.6); Absolute Neutrophils 4.8 10^3/uL (1.4-6.5); Hematocrit 30.1 % (39.0-52.0); Mean Corp Hgb Conc. 33.2 g/dL (33.0-37.0); Mean Corpuscular Volume 90.4 fL (80.0-94.0); Mean Platelet Volume 11.1 fL (7.4-10.4); Nucleated Red Blood Cells % 0 % (-); Platelet Count 227 10^3/uL (130-400); Red Blood Cell Count 3.33 10^6/uL (4.70-6.10); Red Cell Dist. Width 12.1 % (11.5-14.5); White Blood Cell Count 6.9 10^3/uL (4.8-10.8)
[2024-06-28 15:17] LABS: Blood Urea Nitrogen 81 mg/dl (9-20); Calcium 8.4 mg/dl (8.4-10.2); Carbon Dioxide 23 mmol/L (22-30); Chloride 103 mmol/L (98-107); Estimated Creatinine Clearance 23 ml/min; Glucose 215 mg/dl (70-99); Potassium 4.7 mmol/L (3.5-5.1); Sodium 138 mmol/L (135-145); eGFR 17.78
[2024-06-28] MEDS: UNASYN IV (15:59)
[2024-06-28 16:00] VITALS: BP 156/89
--- NOTE | 2024-06-28 17:17 | HPS.HSE ---
Addendum entered and electronically signed by Olga Zapata MD 06/28/24 17:56:
I personally performed a history and physical exam of the patient and discussed management with the resident. I reviewed the resident's note and agree with the documented findings and plan of care HPI/CC.
GENERAL: well developed, well nourished, male in no apparent distress
HEENT: NC/AT
HEART: regular rate and rhythm, +S1, +S2
LUNGS : clear to auscultation bilaterally
ABDOM: soft, nontender, nondistended, + bowel sounds
EXT: no cyanosis, clubbing, or edema--right great toe amputation, distal second and third toe amputation
NEUROLOGIC: grossly intact
SKIN: right plantar foot ulcer without redness or oozing, nontender to touch--redness much improved (from previous outline)
Diabetic foot ulcer with cellulitis and concern for osteomyelitis--spoke with podiatry--wound probes to bone--ADMIT--check culture, cont Unasyn (renally dosed)--MRI tonight if possible, surgery depends on result--N.p.o. after midnight; OR tomorrow?
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
Essential hypertension--Continue hydrochlorothiazide--Continue clonidine
CKD stage 4--baseline creat 3.5--renal dose meds
Hyperlipidemia--Continue atorvastatin
DVT proph
code status -- FULL CODE
Original Note:
Family Physician
-
Family Physician: Sunday Regan
Chief Complaint
-
Right foot wound/infection
History of Present Illness
73-year-old gentleman with known past medical history of essential hypertension, insulin-dependent diabetes, CKD, hyperlipidemia presented to the emergency department with concerns of osteomyelitis of the right great toe wound. Patient has history
of multiple amputation on his right toes. He states that he noticed some swelling and skin cracking on the plantar surface of the right great toe a week ago. He consulted his dish machine operator this Monday and had some wound debridement in the office and
was started on Augmentin. He also notes that he had some episodes of chills before starting antibiotic however he did not had any fevers. He noticed swelling and redness has significantly decreased since he was started on antibiotics but
dish machine operator is highly suspicious of osteomyelitis given the depth of the wound and suggested him to go to ER for further evaluation. He had an x-ray of his right foot on Monday per recommendation of the dish machine operator and results did not suggest
osteomyelitis
Medical History
Past Medical History
Past Medical History: Reports HTN, Hypercholesterolemia and IDDM
Past Surgical History: Reports Orthopedic
Additional Past Surgical History:
Cataract
Social History
Tobacco: Non-smoker
Alcohol: None
Drug: None
Personal:
Living: With Family
Family History
Family History: Not pertinent
Allergies / Home Medications
Allergies reflects when Allergies were last updated in [facility].
Home Medications with original date entered in [facility]
Allergy/Medication List:
Allergies
Allergy/AdvReac Type Severity Reaction Status Date / Time
amlodipine Allergy Swelling-significant Verified 06/28/24 17:03
ankle edema
Home Medications
atorvastatin 40 mg tablet 40 mg PO QPM High Cholesterol 03/30/16
dapagliflozin propanediol 10 mg tablet (Farxiga) 10 mg PO DAILY Diabetes 05/13/24
insulin glargine 100 unit/mL (3 mL) subcutaneous pen (Lantus Solostar U-100 Insulin) 18 unit SC HS Diabetes 05/13/24
insulin lispro 100 unit/mL subcutaneous solution (Humalog U-100 Insulin) 10 sliding scale dose SC AC Diabetes 05/13/24
amoxicillin 875 mg-potassium clavulanate 125 mg tablet 1 tab PO BID infection 06/28/24
aspirin 325 mg tablet 325 mg PO DAILYPRN PRN mild pain 06/28/24
clonidine HCl 0.1 mg tablet 0.1 mg PO TID Blood Pressure 06/28/24
hydrochlorothiazide 25 mg tablet 25 mg PO DAILY Blood Pressure 06/28/24
Review of Systems
-
History Source: Patient
A 12 point ROS was completed and negative except as noted: Yes
Physical Exam
Vital Signs
Vital Signs
Temp Pulse Resp BP Pulse Ox
98.3 F 56 16 156/89 97
06/28/24 13:50 06/28/24 16:00 06/28/24 16:00 06/28/24 16:00 06/28/24 16:00
Physical Exam
General: Well Developed, Well Nourished and No Apparent Distress
HEENT: NormoCephalic, Moist mucous membranes and Atraumatic
Respiratory: Clear
Cardiac: S1/S2 and Regular Rhythm; No Murmur or Rub
GI: Soft, Non Tender, Non Distended and Normal Bowel Sounds; No Organomegaly
Rectal: Deferred by Provider
Musculoskeletal: No Clubbing, No Cyanosis, No Edema and Other (Amputation of the right great toe, distal second toe and third toe. Open ulcer on the plantar surface of the great toe with mild swelling, erythema. Tender to touch. 2+ distal pulses)
Skin: Warm and Dry
Neuro: Awake, Alert, Oriented, AO x 3 and Nonfocal/grossly intact
Psych: Calm
Laboratory Results
-
06/28/24 14:52
06/28/24 14:52
Data Reviewed
-
Lab Data: Labs Reviewed by me, Discussed with Physician and Discussed with Patient
Impression/Plan
-
73-year-old male with past medical history of hypertension, insulin-dependent diabetes, chronic kidney disease, hyperlipidemia presenting to ED with concern for osteomyelitis of the right great toe.
# Right foot ulcer
-Improving cellulitis
-Podiatry concern for osteomyelitis
-MRI ordered
-Started Unasyn
-N.p.o. after midnight; OR tomorrow?
# Essential hypertension
-Continue hydrochlorothiazide
-Continue clonidine
# CKD
-Creatinine 3.5 at baseline
-Continue to monitor
# Diabetes mellitus
-Continue Farxiga
-Continue lispro 10 unit
- Lantus 9 units(half dose) today
-Diabetic diet
# Hyperlipidemia
-Continue atorvastatin 40
Full code
DVT prophylaxis: SCD
[2024-06-28 17:28] VITALS: BP 195/66
[2024-06-28 17:30] VITALS: BMI 30.1
[2024-06-28] MEDS: LIPITOR 40 MG PO (17:49)
[2024-06-28 17:55] LABS: Glucose - Point of Care 59 mg/dl (70-99)
--- NOTE | 2024-06-28 17:59 | PHA.VAN.IN ---
Assessment
- Assessment
Renal Function: Appears similar to baseline
Concomitant Antimicrobials: UNASYN
- Previous Dosing Experience
Previous Regimen: DOSING BY RANDOM LEVELS
Date of Regimen: 05/13/24
Provided Trough of: UNKNOWN
Provided AUC of: UNKNOWN
Patient's SCR is: Similar to previous dosing experience (05/13/24 SCR = 3.5)
Patient's weight is: Similar to previous dosing experience (05/13/24 WT = 97.8 KG)
Plan
- Plan
Initial / Loading Dose: 1500MG
Maintenance Regimen: DOSING BY RANDOM LEVELS
Monitoring: RANDOM VANCOMYCIN LEVEL 06/29/24 AM
Pharmacokinetics Vancomycin I
- -
Patient Age: 73
Patient Sex: Male
Vancomycin Day #: 1
Indication: Bone And Joint (OM)
Requesting Provider: GAYLE
Height / Weight:
Height 5 ft 11 in
Actual Weight 97.721 kg
Pertinent Past Medical History: DM
- Vital Signs / Lab Results
Temp Pulse Resp BP Pulse Ox
97.7 F 67 18 195/66 99
06/28/24 17:28 06/28/24 17:28 06/28/24 17:28 06/28/24 17:28 06/28/24 17:28
Lab Results - Hematology
06/28/24
14:52
WBC 6.9
Lab Results - Chemistry
06/28/24
14:52
BUN 81 H
Creatinine 3.5 H
Estimated Creat Clear 23
[2024-06-28 18:22] LABS: Glucose - Point of Care 105 mg/dl (70-99)
--- NOTE | 2024-06-28 18:38 | PTCARENOTE ---
Received pt from ER via stretcher, accompanied by ER staff. Pt AAO x3, ZAAPTA well, ambulatory to bed, no c/o weakness/dizziness. Pt wearing surgical shoe on Rt foot w/OOB activity. VSS. On room air- pulse ox 99%, no SOB. Abd soft, rounded, to
start 1800 marcel diet. Pt DTV; urinal at bedside. Pt has 1 cm open ulcer at base of Rt great toe stump, no drainage noted. Pt's BS 59 upon arrival to unit; given 120 ml OJ; repeat Accucheck 105. Pt currently off unit in MRI dept. Will continue to
monitor.
[2024-06-28 20:04] LABS: Glucose - Point of Care 144 mg/dl (70-99)
[2024-06-28] MEDS: NOVOLOG FLEXPEN-MODERATE RESISTANCE SC (20:21)
[2024-06-28] MEDS: VANCOCIN 530 MG IV (20:24)
[2024-06-28 21:59] LABS: Glucose - Point of Care 139 mg/dl (70-99)
[2024-06-28] MEDS: CATAPRES 0.1 MG PO (22:00)
--- NOTE | 2024-06-28 22:10 | PTCARENOTE ---
Patient declined 9 units of Lantus at bedtime. Stated his sugar was low earlier and if he was to be NPO at midnight for surgery, he would not take it. Blood sugar checked at around 2200, blood sugar of 139. Will recheck blood sugar in the AM at 0300.
[2024-06-28 23:55] VITALS: BP 157/62
[2024-06-29] VITALS (9 sets, daily range): BP systolic 124–177; BP diastolic 55–81
[2024-06-29 03:09] LABS: Glucose - Point of Care 178 mg/dl (70-99)
[2024-06-29] MEDS: UNASYN IV (05:50)
[2024-06-29 06:13] LABS: % Basophils 0.6 % (0-2); % Eosinophils 3.5 % (0-6); % Immature Granulocytes 0.2 % (0-0.5); % Lymphocytes 19.9 % (20.5-51.1); % Monocytes 10.1 % (1.7-9.3); % Neutrophils 65.7 % (42.2-75.2); Absolute Eosinophils 0.2 10^3/uL (0-0.7); Absolute Lymphocytes 1.2 10^3/uL (1.2-3.4); Absolute Monocytes 0.6 10^3/uL (0.1-0.6); Absolute Neutrophils 4.1 10^3/uL (1.4-6.5); Hematocrit 28.9 % (39.0-52.0); Hemoglobin 9.8 g/dL (13.0-18.0); Mean Corp Hgb Conc. 33.9 g/dL (33.0-37.0); Mean Corpuscular Hgb 30.5 pg (27.0-31.0); Mean Platelet Volume 11.7 fL (7.4-10.4); Nucleated Red Blood Cells % 0 % (-); Platelet Count 209 10^3/uL (130-400); Red Blood Cell Count 3.21 10^6/uL (4.70-6.10); Red Cell Dist. Width 12.1 % (11.5-14.5); White Blood Cell Count 6.2 10^3/uL (4.8-10.8)
[2024-06-29 06:24] LABS: Vancomycin Random 13.6 ug/ml
[2024-06-29 06:31] LABS: Glucose - Point of Care 172 mg/dl (70-99)
[2024-06-29 06:35] LABS: ALT (SGPT) 16 U/L (0-50); AST (SGOT) 20 U/L (17-59); Albumin 3.3 g/dl (3.5-5.0); Alkaline Phosphatase 65 U/L (38-126); Blood Urea Nitrogen 75 mg/dl (9-20); Calcium 8.3 mg/dl (8.4-10.2); Carbon Dioxide 24 mmol/L (22-30); Chloride 106 mmol/L (98-107); Estimated Creatinine Clearance 21 ml/min; Glucose 162 mg/dl (70-99); Magnesium 2.3 mg/dl (1.6-2.3); Potassium 5.2 mmol/L (3.5-5.1); Sodium 140 mmol/L (135-145); Total Bilirubin 0.5 mg/dl (0.2-1.3); eGFR 18.41
[2024-06-29 07:20] LABS: Vitamin B12 514 pg/ml (239-931)
--- NOTE | 2024-06-29 07:44 | W.PN.UPDATE ---
Update Note
Progress Note Update
full consult dictated
will plan for biospy bone today and debridement
consent sign
risk d.w pt
--- NOTE | 2024-06-29 08:18 | PHA.VAN.FU ---
Vancomycin Assessment / Plan
- Assessment
Renal Function: Stable (3.5,3.4)
WBC's are: WNL
In the past 24 hrs, patient has been: Afebrile
Concomitant Antimicrobials: ampicillin/sulbactam - renally dosed
pt scheduled for OR today for bone bx and debridement
- Assessment - Therapeutic Drug Monitoring
Random Level: 13.6 ~ 9 hours after 1500 mg dose
- Dosing Plan
Continue: dose by random level
Dosing by Level: Re-dose today (1000 mg x 1 dose today)
- Monitoring Plan
Random Level: repeat random level AM 06/30
- Follow Up
Pharmacy will continue to follow.
Vancomycin Follow UP
- -
Patient Age: 73
Patient Sex: Male
Vancomycin Day #: 2
Indication: Bone And Joint (OM)
Requesting Provider: GAYLE
Height / Weight:
Height 5 ft 11 in
Actual Weight 97.721 kg
Pertinent Past Medical History: DM
- Vital Signs / Lab Results
Temp Pulse Resp BP Pulse Ox
98.3 F 53 20 157/62 97
06/28/24 23:55 06/28/24 23:55 06/28/24 23:55 06/28/24 23:55 06/28/24 23:55
Lab Results - Hematology
06/28/24 06/29/24
14:52 05:27
WBC 6.9 6.2
Lab Results - Chemistry
06/28/24 06/29/24
14:52 05:27
BUN 81 H 75 H
Creatinine 3.5 H 3.4 H
Estimated Creat Clear
Albumin 3.3 L
Microbiology Results
06/28/24 16:16 Gram Stain - Preliminary
Foot - Right
Therapeutic Drug Monitoring
Random Vancomycin 13.6 ug/ml 06/29/24 05:27
--- NOTE | 2024-06-29 08:35 | W.PN.UPDATE ---
Update Note
Progress Note Update
pt seen in [facility]
dressing cdi
cft intact
s/p I&D/excisional debridement sub Q/bone bx right hallux---stable
no acute soi
questionable osteo on mri
bone sent to path
stable
for dc if ok with ID/med...rec abx and tailor once path back--pwb right foot, with walker crutches, walk on heel with sx shoe
podiatry to change bandages
if dc today, pt to leave bandages on, dry and fu in office monday
rec ID consult
cont abx until cult back
[2024-06-29 08:50] LABS: Glucose - Point of Care 191 mg/dl (70-99)
[2024-06-29 09:31] LABS: Glucose - Point of Care 180 mg/dl (70-99)
[2024-06-29] MEDS: ORETIC 25 MG PO (09:49)
[2024-06-29] MEDS: FARXIGA 10 MG PO (09:49)
[2024-06-29] MEDS: CATAPRES 0.1 MG PO ×2 (09:49→17:34)
[2024-06-29] MEDS: NOVOLOG FLEXPEN-MODERATE RESISTANCE 1 UNITS SC (09:50)
[2024-06-29] MEDS: NOVOLOG FLEXPEN SC ×2 (09:55→17:57)
[2024-06-29] MEDS: VANCOCIN 200 IV (11:52)
--- NOTE | 2024-06-29 11:53 | W.PN.HOSP.TC ---
Today's Communication/Plan
-
await ID input
Assessment / Plan
Assessment / Plan
pt is a 73 year old male
Diabetic foot ulcer with cellulitis and concern for osteomyelitis--spoke with podiatry--wound probes to bone---culture pending, cont Unasyn (renally dosed)--MRI cannot rule out osteo although reactive edema could appear similar--s/p OR
06/29--consult ID as per podiatry
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
Essential hypertension--Continue hydrochlorothiazide--Continue clonidine
CKD stage 4--baseline creat 3.5--renal dose meds
Hyperlipidemia--Continue atorvastatin
DVT proph
code status -- FULL CODE
can be d/c from podiatry if cleared by ID
Anticipated Discharge: Within 24 hours
Subjective/Interval History
-
Date of Service: June 29, 2024
pt seen after surgery back in room--no c/o
Objective Data
-
Labs:
Laboratory Results
06/29/24
05:27
WBC 6.2
Hgb 9.8 L
Hct 28.9 L
Plt Count 209
Sodium 140
Potassium 5.2 H
Chloride 106
Carbon Dioxide 24
BUN 75 H
Creatinine 3.4 H
Glucose 162 H
Calcium 8.3 L
Total Bilirubin 0.5
AST 20
ALT 16
Alkaline Phosphatase 65
Vital Signs:
max temp for 24 hours
06/29/24
08:35
Temp 98.5 F
Vital Signs
Temp Pulse Resp BP Pulse Ox
97.5 F 51 20 152/67 98
06/29/24 10:30 06/29/24 10:30 06/29/24 10:30 06/29/24 10:30 06/29/24 10:30
I&O
06/28/24 06/29/24 06/30/24
06:59 06:59 06:59
Intake Total 1130 / 1130
Balance 1130 / 1130
Review of Systems
-
All other systems: Reviewed and negative
Physical Exam
-
General: Well Developed, Well Nourished and No Apparent Distress
HEENT: Normocephalic and Atraumatic; Negative Oxygen
Respiratory: Clear to Auscultation; Negative Wheezes or Rhonchi
Cardiac: Regular Rhythm and S1/S2; Negative Murmur
GI: Soft, Nontender, Nondistended and Normal Bowel Sounds
Musculoskeletal: No Clubbing, No Cyanosis, No Edema and Other (right foot wrapped post op)
Neuro: Awake and Alert
Psych: Calm
[2024-06-29 12:21] LABS: Glucose - Point of Care 274 mg/dl (70-99)
[2024-06-29] MEDS: NOVOLOG FLEXPEN-MODERATE RESISTANCE 5 UNITS SC (12:26)
[2024-06-29] MEDS: NOVOLOG FLEXPEN 10 UNITS SC (12:26)
--- NOTE | 2024-06-29 12:49 | CM ---
Alert awake oriented patient who lives with his dgt Nessa.They live in a 2 story home with 1 step to enter Bed bathroom on first floor.He is independent in driving and all ADLs. No adaptive devices.Offered VN he declined need.
No VN /Snf hx.
Pharmacy [facility]
PCp Dr Gil
PLAN Home no needs
--- NOTE | 2024-06-29 15:50 | CON.ID ---
Consultation
-
Date/Time Consultation Requested: 06/29/2024 0729
Date/Time Consultation Performed: 06/29/2024 1530
Requesting Provider: Dr. Zapata
Performing Provider: Dr. Castellon
Reason for Consultation: Right hallux osteomyelitis
Chief Complaint / Past History
History of Present Illness
Gee Herman is a 73-year-old man being evaluated at the request of Dr. Zapata in regards to right hallux osteomyelitis. History is obtained from chart review, along with patient interview.
The patient is known to the Infectious Diseases service, having been seen on his prior admission (05/13/2024 through 05/14/2024) during which time he was evaluated for a left foot infection requiring surgery. Ultimately he was discharged to home, to
continue with an additional 7 days of Augmentin and doxycycline, which she reports he completed successfully.
He did well until approximately 1 week ago when he developed pain in his right great toe. He has a history of prior partial amputation of the right hallux, with approximately two thirds of the toe having previously been removed. He was seen by
Podiatry and placed on Augmentin. The patient reports he had a small ulcer through which the deck builder could probe to bone. Approximately 2 days ago he had increased redness and swelling, and the patient was sent to the emergency room for further
evaluation. Here, an MRI was performed which revealed reactive edema, and osteomyelitis could not be ruled out. He is currently status post bone biopsy and culture.
He denies any spreading erythema up his foot or leg. He denies any fevers or chills.
Past History
Additional Past Medical History:
type 2 DM
CKD stage 1v
HTN
peripheral neuropathy
Additional Past Surgical History:
amputation of right great toe
cataract surgery
left hand amputation repair
right 2nd toe amputation
Allergy History:
amlodipine Allergy (Verified 06/28/24 17:55)
Swelling-significant ankle edema
Medications Reviewed: Yes
Current Antibiotics:
Vancomycin
Unasyn
Social History
Tobacco: Non-Smoker
Alcohol: None
Drug: None
Family History
Family History: Not Pertinent
Review of Systems
Vital Signs
Temp Pulse Resp BP Pulse Ox
97.7 F 56 20 124/81 100
06/29/24 12:30 06/29/24 12:30 06/29/24 12:30 06/29/24 12:30 06/29/24 12:30
Physical Exam
Physical Exam
Constitutional: No Acute Distress, Chronically Ill and Obese
Eyes: Sclera Anicteric
Cardiovascular: Regular Rate and S1/S2; Negative Murmur or Rub
Pulmonary: Clear and Symmetric; Negative Wheezes, Rales or Rhonchi
Gastrointestinal: Soft, Non Tender, Non Distended and Normal Bowel Sounds
Extremities: Other (see in PACU; dressing clean, dry, intact)
Skin: Warm and Dry; Negative Rash or Jaundice
Wound: Other (Right foot dressed in Miguelito wrap.)
Neurological: Awake and Alert
Psychological: Calm
Lab / Diagnostic Study Results
06/29/24 05:27
06/29/24 05:27
Abs Immat Gran (auto) 0.0 10^3/uL (0-0.05) 06/29/24 05:27
Absolute Neuts (auto) 4.1 10^3/uL (1.4-6.5) 06/29/24 05:27
Absolute Lymphs (auto) 1.2 10^3/uL (1.2-3.4) 06/29/24 05:27
Absolute Monos (auto) 0.6 10^3/uL (0.1-0.6) 06/29/24 05:27
Absolute Basos (auto) 0.0 10^3/uL (0-0.2) 06/29/24 05:27
Immature Gran % 0.2 % (0-0.5) 06/29/24 05:27
Neutrophils % 65.7 % (42.2-75.2) 06/29/24 05:27
Lymphocytes % 19.9 % (20.5-51.1) L 06/29/24 05:27
Monocytes % 10.1 % (1.7-9.3) H 06/29/24 05:27
Eosinophils % 3.5 % (0-6) 06/29/24 05:27
Basophils % 0.6 % (0-2) 06/29/24 05:27
Microbiology Results
Micro:
06/29/24 08:36 Tissue Culture - Pending
Bone Gram Stain - Preliminary
06/29/24 08:36 Wound Culture - Pending
Foot - Right Gram Stain - Preliminary
06/28/24 16:16 Wound Culture - Preliminary
Foot - Right Gram Stain - Preliminary
06/29/24 08:36 Anaerobic Culture - Pending
Foot - Right
06/28/24 19:20 MRSA Screen - Pending
Nose
Imaging:
06/28/2024 MRI right lower extremity: Postoperative changes of partial great toe amputation with a soft tissue defect along the distal plantar surface of the residual great toe toe which appears to extend to the remnant proximal phalanx. There is
trace STIR hyperintense signal along the inferior aspect of the residual proximal phalanx without discrete T1 signal abnormality. These findings are more suggestive of reactive edema although early osteomyelitis could appear similar.
Assessment / Plan
Right hallux wound
Suspected osteomyelitis; status post biopsy for pathology and culture
HTN
Dyslipidemia
DM
CKD
Recommendations:
At present, no confirmation that there is underlying osteomyelitis, and MRI results are inconclusive.
I have talked extensively with the patient regarding possible courses of action moving forward. He understands that if osteomyelitis were found, that IV antibiotics would be necessary, but results may take at least several days, and there is no
appreciable role for IV antibiotics pending those results.
Moving forward, I have no objection to discharge while awaiting further studies. The patient understands that if ultimately osteomyelitis were noted on biopsy, or cultures became positive that IV antibiotics would be necessary, which would involve
either setting up home infusion, or he return to the hospital. He would be comfortable with this plan.
[2024-06-29] MEDS: NOVOLOG FLEXPEN-MODERATE RESISTANCE SC (17:57)
--- NOTE | 2024-06-30 07:01 | W.DCSUMMARY ---
Discharge Summary
Discharge Data
Date of Admission: 06/28/24
Date of Discharge: 06/29/24
Total time spent discharging patient (in min): 33
-
Pending Results: Yes
Additional Pending Results:
results of surgery on Friday 06/29
Hospital Course
Primary care physician : Sunday Regan
Principal Discharge diagnosis : Diabetic foot ulcer with cellulitis and concern for osteomyelitis
Chronic Discharge diagnosis : Type II early onset diabetes versus type I late onset as per primary care physician, essential hypertension, chronic kidney disease stage IV, hyperlipidemia
Hospital Course : Patient was a 73-year-old male with essential hypertension, type 2 diabetes mellitus insulin requiring chronic kidney disease stage IV who presented with concerns of osteomyelitis of the right great toe wound. He has a history of
multiple amputations of his right toes. He noticed swelling and skin cracking on the plantar surface of the right great toe 1 week prior to admission. He contacted his network systems integrator and had some wound debridement in the office on this past Monday
prior to admission and was started on Augmentin. He noted that he had episodes of chills before starting the antibiotics but no fevers. He noticed swelling and redness has significantly decreased but his network systems integrator was suspicious of osteomyelitis
as the wound does probe to bone. Patient had an x-ray of the right foot without any signs of osteomyelitis. Patient was admitted.
Problem #1: Diabetic foot ulcer with cellulitis and concern for osteomyelitis. Patient was admitted and seen in consultation by both podiatry and infectious disease at podiatry's request. The patient's wound probes to bone. X-ray was negative for
osteomyelitis. Cultures were sent. Patient was started on Unasyn renally dosed. Patient did have an MRI here in the hospital. That could not rule out osteo because reactive edema could appear similar. Patient was taken to the operating room on
June 29, 2024. Cultures and pathology from that surgery are pending at this time. It is recommended by infectious disease that the patient be discharged on Augmentin 500 mg twice daily for 5 days. ID should follow-up with the patient. He
does understand that if osteomyelitis was found patient would need to return for IV antibiotics.
Problem #2: All other medical issues. These include Type II early onset diabetes versus type I late onset as per primary care physician, essential hypertension, chronic kidney disease stage IV, hyperlipidemia. These medical issues were stable
during his hospitalization. Medications were continued as able.
Important imaging findings :
X-ray right foot IMPRESSION:
Stable transphalangeal amputation changes of the great toe. Intact resection margins. Interval transphalangeal resection of the third digit with intact resection margins. No convincing acute fracture or dislocation. No overt radiographic evidence
for osteomyelitis. Scattered mild to moderate degenerative changes. Mild to moderate calcaneal enthesopathy. Scattered vascular calcifications.
MRI right foot IMPRESSION:
Postoperative changes of partial great toe amputation with a soft tissue defect along the distal plantar surface of the residual great toe toe which appears to extend to the remnant proximal phalanx. There is trace STIR hyperintense signal along the
inferior aspect of the residual proximal phalanx without discrete T1 signal abnormality. These findings are more suggestive of reactive edema although early osteomyelitis could appear similar.
Moderate degenerative changes of the first MTP with degenerative changes of the midfoot.
Patient is stable for discharge at this time. If there are any questions regarding this dictation or his hospital stay, please do not hesitate to call. Our office number is [phone].
Discharge Plan
-
Patient Disposition: Home with Home Care
Discharge Diagnosis/Procedures: Diabetic foot ulcer with cellulitis and concern for osteomyelitis, type II early onset diabetes mellitus versus type I late onset as described by his primary care physician, essential hypertension, chronic kidney
disease stage IV, hyperlipidemia
Condition: Good
Diet: Diabetic, Carb Controlled
Activity: Other activity
Additional Activity: Partial weightbearing right foot with walker and crutches, walk on heel with surgical shoe
Driving Restrictions: No driving
Bathing Restrictions: After seen by
Other Services: VN
Referrals:
Charly Guardado DPM [Specified Professional Personl] - (Monday)
Sunday Regan MD [Family Provider] - in less than 1 week
Additional Discharge Medication Instructions: New prescription of Amoxicillin-Clavulanate is a new medication.
Your old Amoxicillin-Clavulanate has been stopped.
Prescriptions:
New
clonidine HCl 0.1 mg Tablet
0.1 mg PO TID Qty: 0 0RF
acetaminophen 325 mg Tablet
650 mg PO Q4HPRN PRN (Reason: mild pain/ESPINOSA/temp> 100.4F) Qty: 0 0RF
amoxicillin-pot clavulanate 500-125 mg tablet
1 tab PO Q12H 5 Days Qty: 10 0RF
Continued
atorvastatin 40 MG tablet
40 mg PO QPM
insulin lispro [Humalog U-100 Insulin] 100 unit/mL Solution
10 sliding scale dose SC AC
dapagliflozin propanediol [Farxiga] 10 mg Tablet
10 mg PO DAILY
insulin glargine [Lantus Solostar U-100 Insulin] 100 unit/mL (3 mL) insulin pen
18 unit SC HS
aspirin 325 mg Tablet
325 mg PO DAILYPRN PRN (Reason: mild pain )
clonidine HCl 0.1 MG tablet
0.1 mg PO TID
hydrochlorothiazide 25 mg tablet
25 mg PO DAILY
Discontinued
amoxicillin-pot clavulanate [Augmentin] 875-125 mg Tablet
1 tab PO BID
Discharge Orders:
Discharge Patient (As Directed); Ordered 06/29/24
Ordered By: Jori Good
Discharge Date and Time
Discharge Date/Time: 06/29/24 18:37
Print Language: SRI LANKAN
== END 2024-06-29 18:37 | disposition home or self-care (01) | DRG 623 ==
LOC: 4 EAST ACU 16:52
PROVIDERS: ADMITTING PHYSICIAN Internal Medicine; CONSULT PHYSICIAN Internal Medicine Infectious Disease; EMERGENCY PHYSICIAN Emergency Medicine; FAMILY PHYSICIAN Family Medicine; OTHER PHYSICIAN Podiatrist Foot Surgery
PROC: 0JBQ0ZZ Excision of Right Foot Subcutaneous Tissue and Fascia, Open Approach (ICD-10-PCS; 2024-06-29)
PROC: 0QBQ0ZX Excision of Right Toe Phalanx, Open Approach, Diagnostic (ICD-10-PCS; 2024-06-29)
DX: E11.621 Type 2 diabetes mellitus with foot ulcer (principal); L03.115 Cellulitis of right lower limb; L97.516 Non-pressure chronic ulcer of other part of right foot with bone involvement without evidence of necrosis; M86.8X7 Other osteomyelitis, ankle and foot; Z79.4 Long term (current) use of insulin; Z79.84 Long term (current) use of oral hypoglycemic drugs; I12.9 Hypertensive chronic kidney disease with stage 1 through stage 4 chronic kidney disease, or unspecified chronic kidney disease; N18.4 Chronic kidney disease, stage 4 (severe); E11.69 Type 2 diabetes mellitus with other specified complication; Z79.82 Long term (current) use of aspirin; E78.00 Pure hypercholesterolemia, unspecified; E11.628 Type 2 diabetes mellitus with other skin complications; E11.22 Type 2 diabetes mellitus with diabetic chronic kidney disease; E11.36 Type 2 diabetes mellitus with diabetic cataract; E11.40 Type 2 diabetes mellitus with diabetic neuropathy, unspecified; M77.31 Calcaneal spur, right foot
CPT/HCPCS: 88304; 88311; 73630; 73718; 80048; 80053; 80202; 82607; 82962; 83735; 85025; 87070; 87075; 87147; 87176; 87186; 87205; 96374; 97162; 99284

== ENCOUNTER → 2024-09-04 08:42 | Outpatient (REF) | payer MEDICARE, SELFPAY | LOC: RAD 08:42 | PROVIDERS: ATTENDING PHYSICIAN Surgery Vascular Surgery; FAMILY PHYSICIAN Specialist | DX: N18.4 Chronic kidney disease, stage 4 (severe) (principal) | CPT/HCPCS: 93985 ==

== ENCOUNTER 2024-10-15 07:50 | Day surgery (SDC) | payer MEDICARE, SELFPAY ==
[2024-10-15] VITALS (9 sets, daily range): BP systolic 119–176; BP diastolic 46–76
[2024-10-15 08:36] LABS: Hematocrit 30.6 % (39.0-52.0); Hemoglobin 10.4 g/dL (13.0-18.0); Mean Corpuscular Hgb 29.4 pg (27.0-31.0); Mean Corpuscular Volume 86.4 fL (80.0-94.0); Mean Platelet Volume 11.2 fL (7.4-10.4); Platelet Count 206 10^3/uL (130-400); Red Blood Cell Count 3.54 10^6/uL (4.70-6.10); Red Cell Dist. Width 13.4 % (11.5-14.5); White Blood Cell Count 5.9 10^3/uL (4.8-10.8)
[2024-10-15 08:40] LABS: Blood Urea Nitrogen 67 mg/dl (9-20); Calcium 8.8 mg/dl (8.4-10.2); Carbon Dioxide 25 mmol/L (22-30); Chloride 103 mmol/L (98-107); Glucose 74 mg/dl (70-99); Potassium 4.3 mmol/L (3.5-5.1); Sodium 138 mmol/L (135-145); eGFR 15.15
[2024-10-15 08:47] LABS: INR 0.96; PT 13.1 Sec (11.4-14.6)
[2024-10-15 08:48] LABS: APTT 29.1 Sec (23.4-35.0)
[2024-10-15] MEDS: NSS 500 IV (08:50)
[2024-10-15] MEDS: PERIDEX 0.12% ORAL RINSE 15 ML PO (08:51)
[2024-10-15] MEDS: BACTROBAN NASAL 1 GRAM NASAL (08:51)
--- NOTE | 2024-10-15 10:00 | W.SUR.PREOP ---
Pre-Operative Surgical Note
-
I have examined this patient prior to the performance of the scheduled procedure.
The patient's condition is unchanged from the time of the current History and
Physical and the patient is able to undergo the scheduled procedure.
[2024-10-15 11:00] LABS: Glucose - Point of Care 79 mg/dl (70-99)
--- NOTE | 2024-10-15 11:50 | OR.RPT ---
Operative Report
Operative Report
Date of Operation: 10/15/2024
Pre Op Diagnosis: Advanced chronic kidney disease with anticipated need for hemodialysis initiation
Post Op Diagnosis: Advanced chronic kidney disease with anticipated need for hemodialysis initiation
Procedure: Creation of left upper extremity brachiocephalic arteriovenous fistula
Surgeon: David Cespedes III, MD
Engineering Lab Technician: Mj Huddleston MD, PGY4
Anesthesia: General
Complications: None
Estimated Blood Loss: 20 cc
History and Indications for Procedure: 73-year-old male with advanced chronic kidney disease and anticipated need for hemodialysis initiation. He was in need of permanent hemodialysis access creation.
Procedure in Detail: Gee Herman was correctly identified and brought to the operating room. He was placed supine on the operating table with the left arm abducted 90 degrees on a side table. After adequate induction of anesthesia I performed
intraoperative ultrasound on the veins of the left arm. I identified and measured the cephalic vein from the antecubital fossa to the shoulder. The vein was uniformly of adequate quality and diameter for AV fistula creation. The left brachial
artery was also identified in the upper arm and proximal forearm. An appropriate skin incision was marked approximately 1 fingerbreadth below the skin crease at the antecubital fossa. The left hand and arm were circumferentially prepped and draped
in usual sterile fashion. Preoperative antibiotics were administered. A timeout procedure was performed with the nursing and anesthesia staff confirming the patient's identity as well as the nature and laterality of the procedure.
A transverse skin incision was made in the proximal forearm through the previously placed skin stephanie. A combination of electrocautery and sharp dissection was used to expose the cephalic vein. Branches were ligated and divided between silk ties and
metal clips. The brachial artery was exposed using sharp dissection. Proximal and distal control was obtained on the brachial artery with vessel loops. The distal end of the cephalic vein was ligated with a silk tie and then transected with
scissors. The vein was flushed with heparinized saline solution. The vein flushed easily with no resistance. A bulldog clamp was placed on the vein. The brachial artery vessel loops were secured. An arteriotomy was made with an 11 blade and
extended slightly proximally and distally with Horn scissors. The proximal and distal brachial artery were flushed with heparinized saline solution. An end-to-side anastomosis was created using a running 7-0 Prolene suture. Prior to the
completion of the anastomosis the brachial artery was allowed to temporarily forward bleed and backbleed. The area under the anastomosis was flushed with heparinized saline solution to remove any potential thrombus or debris. The anastomosis was
completed. The bulldog was removed from the vein. The proximal vessel loop was released first. After several heartbeats the distal vessel loop was released. There was an easily palpable thrill in the cephalic vein along its course in the upper
arm. The anastomotic suture line was closely inspected and hemostasis was achieved. Hemostasis was achieved in the wound bed. The wound was irrigated with saline solution. Local anesthesia was infiltrated into the skin and subcutaneous tissue
around the wound. The wound was closed in layers. Skin glue was applied.
At the conclusion of the case the patient had an easily palpable thrill in the cephalic vein in the upper arm. The patient had a palpable radial pulse at the wrist.
The patient tolerated the procedure well and was taken to the recovery room in good condition.
Attestation: I was present and responsible for the entire procedure
Signed:
David Cespedes III, MD
[facility]
[phone] (yvdm)
--- NOTE | 2024-10-15 11:52 | W.SUR.POST ---
Surgical Immediate Post Op
Note
Pre Op Diagnosis: CKD
Post Op Diagnosis: CKD
Procedure Performed: Left antecubital radiocephalic AV fistula
Primary Surgeon: David Cespedes
Secondary Surgeons: Mj Huddleston
Anesthesia: see anesthesia flowsheet
Estimated Blood Loss: 10cc
Fluids: see anesthesia flowsheet
Drains/Shunts: none
Specimens/Cultures: none
Doppler/Duplex/Angio (Y/N): y
Complications: none
Operative Findings: L antecubital radiocephalic AV fistula
--- NOTE | 2024-10-15 11:56 | W.[place]-PDMP ---
[place]-PDMP
-
Checked the [place]- Prescription Drug Monitoring Program website, no red flags identified; safe to proceed with prescription.
[2024-10-15] MEDS: VENTOLIN NEBULES 2.5 MG INH (12:19)
[2024-10-15 12:36] LABS: Glucose - Point of Care 110 mg/dl (70-99)
== END 2024-10-15 14:00 | disposition home or self-care (01) ==
LOC: CATH 07:50
PROVIDERS: ATTENDING PHYSICIAN Surgery Vascular Surgery; FAMILY PHYSICIAN Family Medicine
DX: E11.22 Type 2 diabetes mellitus with diabetic chronic kidney disease (principal); I12.0 Hypertensive chronic kidney disease with stage 5 chronic kidney disease or end stage renal disease; N18.6 End stage renal disease; E78.00 Pure hypercholesterolemia, unspecified; Z79.84 Long term (current) use of oral hypoglycemic drugs; Z79.4 Long term (current) use of insulin
CPT/HCPCS: 36821; 80048; 82962; 85027; 85610; 85730; 93005; 94640

== ENCOUNTER → 2024-11-29 06:20 | Outpatient (REF) | payer MEDICARE, SELFPAY | LOC: RAD 06:20 | PROVIDERS: ATTENDING PHYSICIAN Physician Assistant; FAMILY PHYSICIAN Family Medicine; OTHER PHYSICIAN Specialist | DX: I77.0 Arteriovenous fistula, acquired (principal) | CPT/HCPCS: 93990 ==

== ENCOUNTER 2025-05-01 17:56 | Inpatient (IN) | payer MEDICARE, SELFPAY ==
[2025-05-01 12:50] VITALS: BP 174/72
[2025-05-01 13:05] VITALS: BMI 28.6
--- NOTE | 2025-05-01 13:12 | ED.GENMED ---
History of Present Illness
General
Chief Complaint: Skin Problem
Time Seen by Provider: 05/01/25 13:06
History of Present Illness
History of Present Illness:
74-year-old male with history of IDDM, stage IV CKD, and diabetic neuropathy presents for evaluation of worsening wound to the left fourth toe. Has been following with podiatry for quite some time, saw his manager compliance this morning who referred him
into the ED for operative intervention for suspected osteomyelitis. Denies fevers or chills. Has minimal pain to the toe at this time.
Past History
Past History
ED Past Medical History: HTN, Hypercholesterolemia and NIDDM
ED Past Surgical History: Orthopedic and Other (Cataract)
Social History
Tobacco: Non-smoker
Alcohol: None
Drug: None
Personal:
Living: with family
Employment: Employed
Family History
Family History: Hypertension
Review of Systems
Review of Systems
Allergies reviewed?: Yes
All Other Systems: ROS reviewed and negative except as documented in HPI and ROS
Phy Exam
Physical Exam
Physical Exam:
GEN: Well appearing, NAD, WDWN
HEENT: Oral mucosa moist, no scleral icterus
Cardiac: Regular rate
Lung: No respiratory distress, no tachypnea
MSK: Erythematous left fourth digit with diffuse edema and chronic deformity, ulceration at the base as well as a small abrasion to the dorsal surface, no significant surrounding erythema
Skin: Good color, no pallor or jaundice, no rashes
Neuro: AO x3, moves all extremities freely
Psych: Calm, cooperative
Course
Orders/Labs/Results
Orders:
Orders
05/01/25 13:11
CR Toe(s) Min 2 Vw Left Urgent
Comment:
Reason For Exam: L 4th toe suspect osteo
05/01/25 13:29
CRP [C-Reactive Protein] Urgent
Complete Blood Count/With Diff Urgent
Comprehensive Metabolic Panel Urgent
ESR [Erythrocyte Sed Rate] Urgent
Blood Culture Q30M
GIO Source: Blood/Venous
Specimen Description:
Blood Culture Q30M
GIO Source: Blood/Venous
Specimen Description:
05/01/25 14:23
Cefepime HCl [Maxipime] 2,000 mg IV NOW STA
05/01/25 14:39
Vancomycin [Vancocin] 1,500 mg 0.9% Sodium Chloride 500 ml [Nss] 500 ml IV NOW
05/01/25 Dinner
2000 calorie (17 carb) Diabetic
At Your Request: Full Participation
Does patient need a safe tray?: No
05/01/25 15:52
Consult Nephrology [NEPHROLOGY CONSULT] Routine
Consulting Provider: Terry Ferrell
Was physician already notified: Yes
05/01/25 16:00
Clonidine [Catapres] 0.1 mg PO TID
05/01/25 16:01
Admit/Transfer Patient As Directed
Co-Sign Provider:
Level of Care: Inpatient admission
Assign to:: Medical/Surgical
Physician / Group: [facility]
Diagnosis: left 4th toe osteomyelitis
Reason for Hospitalization: left 4th toe osteomyelitis
Expected length of stay greater than two midnights?: Yes
ELOS- Estimated Length of Stay in days: 3
I certify the patient meets the requirements for IP care: Yes
PRN Pain Medication Management As Directed
May give lesser potent ordered pain med per pt: Yes
preference::
Protocol:: Medication orders for pain may be administered in a
manner that supports deferring to patient preference
when the pt is:
- Requesting an ordered lesser potent pain medication.
Least to most potent pain medications are defined
as: acetaminophen < NSAID < tramadol < opioids
(morphine, oxycodone, hydromorphone).
- Requesting a lesser dose of the same medication IF
ORDERED.
- Requesting a less intrusive route of administration
if both routes are prescribed by the provider (PO <
IV).
05/01/25 16:04
Code Status As Directed
Resuscitation Status: Full Code
05/01/25 16:12
Transfer Patient As Directed
Transfer to: Telemetry
Reason for Telemetry: Chest Pain syndromes
Date to Stop Telemetry: 05/03/25
Time to Stop Telemetry: 11:00
05/01/25 17:00
0.9% Sodium Chloride 1000 ml [Nss] 1,000 ml IV 100 mls/hr
05/01/25 17:59
Acetaminophen [Tylenol] 650 mg PO Q4HPRN PRN
Bisacodyl [Dulcolax] 10 mg RECTAL [id number] PRN
Dextrose 50%-Water [Dextrose 50% Syringe] 12.5 grams IV [id number] PRN
Docusate W/Senna [Senokot-S] 1 tablet PO BIDPRN PRN
Glucagon [GlucaGen] 1 mg IM PRN PRN
Insulin Aspart Corrective Low [Novolog Flexpen-Low Resistance] See Protocol SC AC
Polyethylene Glycol Powder [Miralax] 17 grams PO DAILYPRN PRN
insulin lispro [Humalog U-100 Insulin] 4 sliding scale dose SC AC
05/01/25 17:59
Activity As Directed
Activity Level: As Tolerated
Bedside Glucose Monitoring As Directed
Frequency: AC&HS
Additional Instructions:: Change to q6h if pt on TPN, tube feeding or not eating
Pneumatic Compression Sleeves As Directed
Type: Knee high
Vital Signs As Directed
Frequency: Per unit guidelines
DX Deep Vein Thrombosis Video Routine
05/01/25 18:00
Aspirin Low Dose EC [Aspir Low (Enteric Coated)] 81 mg PO QPM
Atorvastatin [Lipitor] 40 mg PO QPM
05/01/25 22:00
Clonidine [Catapres] 0.1 mg PO TID
insulin glargine [Lantus Solostar U-100 Insulin] 8 unit SC HS
05/02/25 Breakfast
NPO
Allow oral meds: Yes
Allow clear liquids: No
Basic Metabolic Panel IN AM
Complete Blood Count/With Diff IN AM
Glycohemoglobin (HgbA1c) IN AM
Magnesium IN AM
05/02/25 14:00
Ampicillin/Sulbactam 3 G [Unasyn] 3 gm 0.9% Sodium Chloride 100 ml [Nss] 100 ml IV Q24H
05/03/25 11:00
DC Protocol for Telemetry ONCE
Abnormal Lab Results
05/01/25
13:29
RBC 3.09 L 10^6/uL
(4.70-6.10)
Hgb 9.1 L g/dL
(13.0-18.0)
Hct 27.3 L %
(39.0-52.0)
MPV 11.3 H fL
(7.4-10.4)
Absolute Neuts (auto) 6.7 H 10^3/uL
(1.4-6.5)
Neutrophils % 77.1 H %
(42.2-75.2)
Lymphocytes % 13.2 L %
(20.5-51.1)
ESR 72 H mm/hour
(0-20)
BUN 103 H* mg/dl
(9-20)
Creatinine 4.9 H* mg/dL
(0.7-1.3)
Glucose 142 H mg/dl
(70-99)
C-Reactive Protein 16.00 H mg/L
(0.0-10.00)
05/01/25 13:29
05/01/25 13:29
Vital Signs
Initial and Last Documented VS:
Initial Vital Signs
Temp Pulse Resp BP Pulse Ox
97.4 F 70 12 174/72 100
05/01/25 12:50 05/01/25 12:50 05/01/25 12:50 05/01/25 12:50 05/01/25 12:50
Last Documented Vital Signs
Temp Pulse Resp BP Pulse Ox
98.4 F 60 16 183/65 98
05/01/25 18:08 05/01/25 18:08 05/01/25 18:08 05/01/25 18:08 05/01/25 18:08
MDM/Problems Addressed
MDM/Problems Addressed:
Will start empiric antibiotics will be admitted to the hospital service
*Pulse Oximetry
SaO2: 100
Oxygen Mode of Delivery: Room air
Patient hypoxic: no
*Critical Care Note
Total Time (30-74mins, 75-104mins- exclusive of procedures): Not Applicable
ED Attending Note
-
Portions of this chart may have been created with voice recognition software.� Occasional wrong word or��sound alike� substitutions may have occurred due to the inherent limitations of voice recognition software.
Discharge Plan
Departure
Patient Disposition: Admit
Date of Disposition: 05/01/25
Time of Disposition: 14:24
Presentation/result/management discussed w/ accepting MD/DO: Hospitalist
Discharge Problem:
Acute osteomyelitis of toe of left foot
Interventions
Interventions:
*Risk Screen - Suicide Last Done: 05/01/25 12:50
*General Assessment Last Done: 05/01/25 12:50
*Neglect/Abuse Screening Last Done: 05/01/25 12:50
*ED- Fall Risk Assessment Last Done: 05/01/25 13:05
*ED COVID-19 Vaccine History Last Done: 05/01/25 12:50
*Nursing Disposition Last Done: 05/01/25 17:59
ED-Skin Assessment Last Done: 05/01/25 13:01
Discharge Date and Time
Discharge Date/Time: 05/01/25 18:00
[2025-05-01 13:43] LABS: Hematocrit 27.3 % (39.0-52.0); Hemoglobin 9.1 g/dL (13.0-18.0); Mean Corp Hgb Conc. 33.3 g/dL (33.0-37.0); Mean Corpuscular Volume 88.3 fL (80.0-94.0); Nucleated Red Blood Cells % 0 % (-); Platelet Count 198 10^3/uL (130-400); Red Cell Dist. Width 12.7 % (11.5-14.5)
[2025-05-01 14:21] LABS: ALT (SGPT) 14 U/L (0-50); AST (SGOT) 19 U/L (17-59); Albumin 4.3 g/dl (3.5-5.0); Alkaline Phosphatase 66 U/L (38-126); Blood Urea Nitrogen 103 mg/dl (9-20); Calcium 8.8 mg/dl (8.4-10.2); Carbon Dioxide 24 mmol/L (22-30); Chloride 103 mmol/L (98-107); Estimated Creatinine Clearance 14 ml/min; Glucose 142 mg/dl (70-99); Potassium 3.9 mmol/L (3.5-5.1); Sodium 138 mmol/L (135-145); Total Protein 7.3 g/dl (6.3-8.2); eGFR 11.80
[2025-05-01] MEDS: MAXIPIME 2000 MG IV (14:32)
[2025-05-01] MEDS: VANCOCIN 530 MG IV (14:47)
[2025-05-01 15:34] VITALS: BP 194/69
--- NOTE | 2025-05-01 15:35 | HPS.HSE ---
Addendum entered and electronically signed by Mercy Haynes MD 05/01/25 16:23:
Discussed with Dr. Guardado, patient was on abx outpatient. Will continue Unasyn 3G q 24 hours basd on renal function (next dose tomorrow)
Original Note:
Family Physician
-
Family Physician: Sunday Regan
Chief Complaint
-
worsening wound to left 4th toe
History of Present Illness
Mr. Gee Herman is a 74 yo man with hx IDDM, CKD IV (left AV fistula 10/15/24), diabetic neuropathy presents for worsening wound to left 4th toe.
Patient was seen by his Finished Hardware Erector this morning, who referred him to the ER for operative intervention.
Patient states he has had this wound for weeks and it was improving but a few days ago he put too much weight on it and it started to appear more red. No exudate. No fevers/chills.
He denies chest pain or shortness of breath. No nausea/vomiting/diarrhea. No LE swelling. He reports that he has been urinating less frequently. Over the past 2 days he has been traveling and may be more dehydrated.
Medical History
Past Medical History
Past Medical History: Reports HTN, Hypercholesterolemia and IDDM
Past Surgical History: Reports None
Social History
Tobacco: Non-smoker
Alcohol: None
Family History
Family History: Not pertinent
Allergies / Home Medications
Allergies reflects when Allergies were last updated in [facility].
Home Medications with original date entered in [facility] [facility]
Allergy/Medication List:
Allergies
Allergy/AdvReac Type Severity Reaction Status Date / Time
amlodipine Allergy Swelling-significant Verified 10/09/24 15:30
ankle edema
Home Medications
atorvastatin 40 mg tablet 40 mg PO QPM High Cholesterol 03/30/16
dapagliflozin propanediol 10 mg tablet (Farxiga) 10 mg PO DAILY Diabetes 05/13/24
insulin glargine 100 unit/mL (3 mL) subcutaneous pen (Lantus Solostar U-100 Insulin) 18 unit SC HS Diabetes 05/13/24
insulin lispro 100 unit/mL subcutaneous solution (Humalog U-100 Insulin) 8 sliding scale dose SC AC Diabetes 05/13/24
clonidine HCl 0.1 mg tablet 0.1 mg PO TID Blood Pressure 06/28/24
hydrochlorothiazide 25 mg tablet 25 mg PO DAILY Blood Pressure 06/28/24
acetaminophen 325 mg tablet (Tylenol) 325 mg PO DAILYPRN PRN mild pain 05/01/25
aspirin 81 mg tablet,delayed release 81 mg PO QPM 05/01/25
Review of Systems
-
History Source: Patient
A 12 point ROS was completed and negative except as noted: Yes
Physical Exam
Vital Signs
Vital Signs
Temp Pulse Resp BP Pulse Ox
97.4 F 70 12 174/72 100
05/01/25 12:50 05/01/25 12:50 05/01/25 12:50 05/01/25 12:50 05/01/25 13:12
Physical Exam
General: No Apparent Distress
HEENT: PERRLA
Respiratory: Clear; No Wheezes
Cardiac: S1/S2 and Regular Rhythm
GI: Soft and Non Tender
Musculoskeletal: No Edema and Other (left 4th digit with wound and surrounding erythema, no exudate )
Skin: Warm and Dry
Neuro: AO x 3
Psych: Calm
Laboratory Results
-
05/01/25 13:29
05/01/25 13:29
Laboratory Results
Total Bilirubin 0.5 mg/dl (0.2-1.3) 05/01/25 13:29
AST 19 U/L (17-59) 05/01/25 13:29
ALT 14 U/L (0-50) 05/01/25 13:29
Alkaline Phosphatase 66 U/L (38-126) 05/01/25 13:29
Data Reviewed
-
Diagnostic Radiology: Report Reviewed by me
Lab Data: Labs Reviewed by me
Impression/Plan
-
Mr. Gee Herman is a 74 yo man with hx IDDM, CKD IV (left AV fistula 10/15/24), diabetic neuropathy presents for worsening wound to left 4th toe.
Triage VS: T 97.4, P 70, RR 12, BP 174/72, SpO2 100%
LABS: WBC 8.7, Hg 9.1, PLT 198, Na 138, K+ 3.9, Cl 103, CO2 24, BUN 103, Cr 4.9, Glucose 142, liver enzymes WNL
MAR: IV Vanc/Cefepime
Left 4th Toe Osteomyelitis
-patient directed to ER by Dr. Guardado for OR tomorrow afternoon
-admit to tele (given progressive CKD)
-received IV Vanc/Cefepime in ER, discussing with Podiatry if need to continue as patient is not septic
-NPO after MN
CKD IV
-patient with increased BUN/Cr levels since October
-understands may need HD initiation post-oP. He is on transplant list at [facility]
-Nephrology consulted
IDDM
-Lantus 8 units qhs (on 18 at home); lower dose given NPO after MN
-Lispro 4 units AC (8 units at home)
-ISS low
-diabetic diet
DVT PPx SCD
FULL CODE
76 minutes spent on patient care
[2025-05-01 15:44] LABS: C-Reactive Protein 16.00 mg/L (0.0-10.00)
[2025-05-01] MEDS: CATAPRES 0.1 MG PO ×2 (15:53→21:04)
--- NOTE | 2025-05-01 16:15 | W.PN.UPDATE ---
Update Note
Progress Note Update
pt seen at er
pt known to office with worse infecion/osteo 4th toe left foot'
Will plan for amp tomorrow
start abx
npo after midnight
anticipate dc sat on po abx
full consult dictated
--- NOTE | 2025-05-01 16:32 | W.CON.NEPH ---
Consultation
-
Date/Time Consultation Requested: May 01, 2025 4 PM
Date/Time Consultation Performed: May 01, 2025 4:30 PM
Requesting Provider: Mercy Haynes
Performing Provider: Dr. Ferrell
Reason for Consultation: Acute on chronic kidney disease
Medical History
-
Chief Complaint: Acute on chronic kidney disease
History of Present Illness:
74 yo man with hx IDDM, CKD IV (left AV fistula 10/15/24), diabetic neuropathy presents for worsening wound to left 4th toe.
Patient was seen by his Journeyman Painter this morning, who referred him to the ER for operative intervention.
Gee has longstanding diabetes uncontrolled at times more controlled as of recently with diabetic retinopathy. He said diabetes diagnosed age 40-45. He follows with Dr. Asif for chronic kidney disease management who has been prepared for
dialysis on a time arrives.
Renal was asked to see him in consultation for progressive renal disease and acute on chronic stage IV kidney disease.
October 2024 his estimated GFR was around 21 with admitting labs showing his estimated GFR of 14 mL/min
He is on active transplant list at [facility] he had a negative stress test done not too long ago.
He is on an SGLT2 inhibitor and was on Karendia but had a decline in renal function so that was discontinued.
He has no chest pain shortness of breath nausea or vomiting and has good appetite. He is active and exercises regularly.
Past Medical History
Hx IDDM, CKD IV (left AV fistula 10/15/24), diabetic neuropathy
Social History
Tobacco: Non-Smoker
Alcohol: None
Family History
Family History: Not Pertinent
Allergies / Home Medications
Allergy/AdvReac Type Severity Reaction Status Date / Time
amlodipine Allergy Swelling-significant Verified 10/09/24 15:30
ankle edema
�Medication �Instructions �Recorded �Confirmed �Type
atorvastatin 40 mg tablet 40 mg PO QPM High Cholesterol 03/30/16 05/01/25 History
dapagliflozin propanediol 10 mg 10 mg PO DAILY Diabetes 05/13/24 05/01/25 History
tablet (Farxiga)
insulin glargine 100 unit/mL (3 18 unit SC HS Diabetes 05/13/24 05/01/25 History
mL) subcutaneous pen (Lantus
Solostar U-100 Insulin)
insulin lispro 100 unit/mL 8 sliding scale dose SC AC Diabetes 05/13/24 05/01/25 History
subcutaneous solution (Humalog
U-100 Insulin)
clonidine HCl 0.1 mg tablet 0.1 mg PO TID Blood Pressure 06/28/24 05/01/25 History
hydrochlorothiazide 25 mg tablet 25 mg PO DAILY Blood Pressure 06/28/24 05/01/25 History
acetaminophen 325 mg tablet 325 mg PO DAILYPRN PRN mild pain 05/01/25 05/01/25 History
(Tylenol)
aspirin 81 mg tablet,delayed 81 mg PO QPM 05/01/25 05/01/25 History
release
Review of Systems
-
No chest pain or shortness of breath. Mild foot swelling at site of infection
All other systems: Negative unless noted
Physical Exam
Vital Signs
Vital Signs
Temp Pulse Resp BP Pulse Ox
97.4 F 64 18 194/69 99
05/01/25 12:50 05/01/25 15:53 05/01/25 15:34 05/01/25 15:53 05/01/25 15:34
Lab Results
WBC 8.7 10^3/uL (4.8-10.8) 05/01/25 13:29
RBC 3.09 10^6/uL (4.70-6.10) L 05/01/25 13:29
Hgb 9.1 g/dL (13.0-18.0) L 05/01/25 13:29
Hct 27.3 % (39.0-52.0) L 05/01/25 13:29
Plt Count 198 10^3/uL (130-400) 05/01/25 13:29
Sodium 138 mmol/L (135-145) 05/01/25 13:
Potassium 3.9 mmol/L (3.5-5.1) 05/01/25 13:
Chloride 103 mmol/L (98-107) 05/01/25 13:
Carbon Dioxide 24 mmol/L (22-30) 05/01/25 13:
BUN 103 mg/dl (9-20) H* 05/01/25 13:
Creatinine 4.9 mg/dL (0.7-1.3) H* 05/01/25 13:
eGFR 11.80 05/01/25 13:
Glucose 142 mg/dl (70-99) H 05/01/25 13:
Calcium 8.8 mg/dl (8.4-10.2) 05/01/25 13:
Albumin 4.3 g/dl (3.5-5.0) 05/01/25 13:
Physical Exam
General no acute distress
HEENT no cephalic atraumatic extraocular muscle intact no scleral icterus no JVD neck supple
lungs clear to auscultation bilateral
heart regular S1-S2 positive
abdomen soft nontender positive bowel sounds
extremities no edema pulses present bilateral
Neurologically nonfocal alert and oriented x 3
Skin toe wound
Psych normal affect no bizarre behavior
Data Reviewed
-
Labs: Labs Reviewed by me, Discussed with Physician and Discussed with Patient
Assessment/Plan
-
74 yo man with hx IDDM, CKD IV (left AV fistula 10/15/24), diabetic neuropathy presents for worsening wound to left 4th toe.
Patient was seen by his Journeyman Painter this morning, who referred him to the ER for operative intervention.
Impression.
Acute on chronic kidney disease stage IV. Creatinine 4.29 most recently November 2024 (follows with Dr. Asif)
Left toe osteo.
Type 2 diabetes.
Hypertension.
Matured AV fistula left upper arm
Plan.
No acute need for dialysis, no electrolyte, volume or uremic standpoint
mature AV fistula ready for use when needed.
Hold Farxiga for surgery tomorrow.
Will start gentle IV fluids.
Vancomycin renally dosed.
Discussed with podiatry and hospital medicine
Cleared for surgery from a renal standpoint
[2025-05-01 18:08] VITALS: BP 183/65; BMI 28.2
[2025-05-01] MEDS: NOVOLOG FLEXPEN-LOW RESISTANCE SC (18:16)
[2025-05-01 19:31] VITALS: BP 183/67
[2025-05-01] MEDS: LIPITOR 40 MG PO (20:17)
[2025-05-01] MEDS: ASPIR LOW (ENTERIC COATED) 81 MG PO (20:17)
[2025-05-01] MEDS: NSS 1000 IV (21:00)
[2025-05-01 21:30] LABS: Glucose - Point of Care 108 mg/dl (70-99)
[2025-05-01 21:40] VITALS: BP 172/62
[2025-05-01 23:14] VITALS: BP 153/61
[2025-05-02] VITALS (17 sets, daily range): BP systolic 141–185; BP diastolic 47–72
[2025-05-02 05:51] LABS: Glucose - Point of Care 171 mg/dl (70-99)
[2025-05-02] MEDS: NSS 1000 IV ×3 (05:54→22:12)
[2025-05-02] MEDS: NOVOLOG FLEXPEN-LOW RESISTANCE 1 UNITS SC ×2 (05:56→17:05)
[2025-05-02] MEDS: NOVOLOG FLEXPEN SC ×2 (06:57→11:56)
[2025-05-02 08:09] LABS: Hematocrit 23.9 % (39.0-52.0); Hemoglobin 8.0 g/dL (13.0-18.0); Mean Corp Hgb Conc. 33.5 g/dL (33.0-37.0); Mean Corpuscular Volume 87.5 fL (80.0-94.0); Nucleated Red Blood Cells % 0 % (-); Platelet Count 173 10^3/uL (130-400); Red Cell Dist. Width 12.6 % (11.5-14.5)
[2025-05-02] MEDS: CATAPRES 0.1 MG PO ×3 (08:40→22:11)
[2025-05-02 08:46] LABS: Blood Urea Nitrogen 92 mg/dl (9-20); Calcium 8.2 mg/dl (8.4-10.2); Carbon Dioxide 20 mmol/L (22-30); Chloride 107 mmol/L (98-107); Estimated Creatinine Clearance 16 ml/min; Glucose 149 mg/dl (70-99); Magnesium 2.5 mg/dl (1.6-2.3); Potassium 4.5 mmol/L (3.5-5.1); Sodium 137 mmol/L (135-145); eGFR 13.43
--- NOTE | 2025-05-02 09:23 | CON.ID ---
Consultation
-
Date/Time Consultation Requested: 05/02/25 7:42
Date/Time Consultation Performed: 05/02/25 9:31
Requesting Provider: Dr Griffith
Performing Provider: Dr Davis
Reason for Consultation: 4th toe infection and osteo
Chief Complaint / Past History
Chief Complaint
worsening wound to left 4th toe
History of Present Illness
Mr Herman is a 74 year old male with history of DM2, CKD IV (had L AV fistula placed), h/o amputation of the 3rd digit diabetic neuropathy who presented here 05/01 for a worsening wound of the left 4th toe. The wound has been present for weeks,
however several days prior to arrival he feels he put too much weight on the toe and it became more red. He saw his salvage laborer who referred him here. There was no purulence and he has not had fevers or chills. No lower extremity edema. No: chest
pain, shortness of breath, nausea, vomiting, diarrhea. Does report less frequent urination.
Since arrival here he has been afebrile, bp stable to hypertensive, wbc initially 8.7 now 7.1, hgb 8.0, plt 173, L shift initially noted now resolved, esr 72, na 138, cr 4.9, a1c pending, crp 16, toe Xray: OM distal phalanx with osteomyelitis which
appears acute. Blood cultures x2 were sent, patient is currently on renally dosed unasyn, ID is consulted for assistance with management. He is planned for amputation of the affected digit today.
Past History
Additional Past Medical History:
HTN, Hypercholesterolemia and IDDM
Past Surgical History: None
Allergy History:
amlodipine Allergy (Verified 10/09/24 15:30)
Swelling-significant ankle edema
Medications Reviewed: Yes
Social History
Tobacco: Non-Smoker
Alcohol: None
Family History
Family History: Not Pertinent
Review of Systems
Review of Systems
A 12 point ROS was completed and negative except as noted
Vital Signs
Temp Pulse Resp BP Pulse Ox
99.6 F 72 18 169/72 97
05/02/25 03:50 05/02/25 03:50 05/02/25 03:50 05/02/25 03:50 05/02/25 03:50
Physical Exam
Physical Exam
Constitutional: No Acute Distress
Cardiovascular: Regular Rate and S1/S2; Negative Murmur or Rub
Pulmonary: Clear and Symmetric; Negative Wheezes, Rales or Rhonchi
Gastrointestinal: Soft, Non Tender, Non Distended and Normal Bowel Sounds
Skin: Warm and Dry; Negative Rash or Jaundice
Wound: Other (wound on the dorsal portion of the 4th metatarsal)
Lab / Diagnostic Study Results
05/02/25 07:16
05/02/25 07:16
Abs Immat Gran (auto) 0.0 10^3/uL (0-0.05) 05/02/25 07:16
Absolute Neuts (auto) 5.3 10^3/uL (1.4-6.5) 05/02/25 07:16
Absolute Lymphs (auto) 0.9 10^3/uL (1.2-3.4) L 05/02/25 07:16
Absolute Monos (auto) 0.7 10^3/uL (0.1-0.6) H 05/02/25 07:16
Absolute Basos (auto) 0.0 10^3/uL (0-0.2) 05/02/25 07:16
Immature Gran % 0.3 % (0-0.5) 05/02/25 07:16
Neutrophils % 75.2 % (42.2-75.2) 05/02/25 07:16
Lymphocytes % 12.7 % (20.5-51.1) L 05/02/25 07:16
Monocytes % 9.4 % (1.7-9.3) H 05/02/25 07:16
Eosinophils % 2.1 % (0-6) 05/02/25 07:16
Basophils % 0.3 % (0-2) 05/02/25 07:16
ESR 72 mm/hour (0-20) H 05/01/25 13:29
C-Reactive Protein 16.00 mg/L (0.0-10.00) H 05/01/25 13:29
Microbiology Results
Micro:
05/01/25 13:29 Blood Culture - Pending
Blood/Venous
05/01/25 13:29 Blood Culture - Pending
Blood/Venous
Assessment / Plan
Osteomyelitis of the L 4th digit
Diabetic Neuropathy
- planned for surgical cure with amputation today
- continue unasyn for now, after amputation antibiotics can be stopped provided that all affected tissue can be removed
- a1c pending, tight glucose control recommended
--- NOTE | 2025-05-02 09:49 | PTCARENOTE ---
called down to SPD for SCD machine and sleeves for patient
[2025-05-02 09:51] LABS: Glycohemoglobin (HgbA1c) 6.5 % (4.0-5.6)
--- NOTE | 2025-05-02 10:44 | CM ---
IA completed. IMM given by admissions 05/01/25 @13;59. Lives with daughter, nephew and 2 grandchildren. Is independent in ADLs and IADLs, Lives in a 2-story home with 1 step to the entrance and 13 steps inside the home. No hx of home O2, HH, SNF or
DME. Confirmed PCP, Rx, insurance and drug coverage.
LUE AV fistula. Has not started dialysis yet.
PCP: Sunday Regan
RX: RAHEEM/Kathrin
Plan: Home with possible wound care.
--- NOTE | 2025-05-02 11:24 | W.PN.NEPH.PH ---
Today's Communication / Plan
-
For likely toe amputation today
Follow BMP
Assessment/Plan
-
74 yo man with hx IDDM, CKD IV (left AV fistula 10/15/24), diabetic neuropathy presents for worsening wound to left 4th toe.
Patient was seen by his In Home Baby Sitter this morning, who referred him to the ER for operative intervention.
Impression.
Acute on chronic kidney disease stage IV. Creatinine 4.29 most recently November 2024 (follows with Dr. Asif)
Left toe osteo.
Type 2 diabetes.
Hypertension.
Matured AV fistula left upper arm
Plan.
No acute need for dialysis, no electrolyte, volume or uremic standpoint
mature AV fistula ready for use when needed.
Holding Farxiga for surgery today
Kidney function with modest improvement following IV fluid
Vancomycin renally dosed.
Discussed with podiatry and hospital medicine
Cleared for surgery from a renal standpoint
-
-
Date of Service: May 02, 2025
CC / HPI / ROS
-
Chief Complaint:
CKD stage IV
History of Present Illness:
Creatinine down to 4.4
Hemodynamically stable
Review of Systems:
Nonoliguric
No chest pain or shortness of breath
Labs
-
Labs:
WBC 7.1 10^3/uL (4.8-10.8) 05/02/25 07:16
RBC 2.73 10^6/uL (4.70-6.10) L 05/02/25 07:16
Hgb 8.0 g/dL (13.0-18.0) L 05/02/25 07:16
Hct 23.9 % (39.0-52.0) L 05/02/25 07:16
Plt Count 173 10^3/uL (130-400) 05/02/25 07:16
Sodium 137 mmol/L (135-145) 05/02/25 07:16
Potassium 4.5 mmol/L (3.5-5.1) 05/02/25 07:16
Chloride 107 mmol/L (98-107) 05/02/25 07:16
Carbon Dioxide 20 mmol/L (22-30) L 05/02/25 07:16
BUN 92 mg/dl (9-20) H 05/02/25 07:16
Creatinine 4.4 mg/dL (0.7-1.3) H* 05/02/25 07:16
eGFR 13.43 05/02/25 07:16
Glucose 149 mg/dl (70-99) H 05/02/25 07:16
Calcium 8.2 mg/dl (8.4-10.2) L 05/02/25 07:16
Albumin 4.3 g/dl (3.5-5.0) 05/01/25 13:29
Physical Exam
-
Vital Signs:
Vital Signs
Temp Pulse Resp BP Pulse Ox
99.1 F 55 16 152/47 97
05/02/25 09:39 05/02/25 09:39 05/02/25 09:39 05/02/25 09:39 05/02/25 09:39
Cardiovascular:: Regular rate and rhythm
Respiratory:: Bilateral: CTA
Lung Excursion:: Normal
Abdomen:: Nontender and Soft
Bowel Sounds:: Normal
Extremity Edema:: None: Bilateral:
Cespedes Catheter: No
[2025-05-02 11:56] LABS: Glucose - Point of Care 166 mg/dl (70-99)
[2025-05-02] MEDS: NOVOLOG FLEXPEN-LOW RESISTANCE SC (11:57)
--- NOTE | 2025-05-02 13:16 | W.PN.UPDATE ---
Update Note
Progress Note Update
pt seen in RR
no pain
dressing cdi
cft intact
a/p s/p a,mp 4th toe left foot---stable
wound closed
pwb on heel in his sx shoe
anticipate dc tomorrow on broad spectrum abx after pod rounds
[2025-05-02 13:36] LABS: Glucose - Point of Care 154 mg/dl (70-99)
--- NOTE | 2025-05-02 14:00 | SUR.PHASEI ---
Lunch relief, floor unavailable for report, dozing vss, no c/o
[2025-05-02] MEDS: UNASYN IV (14:40)
--- NOTE | 2025-05-02 16:08 | PTCARENOTE ---
Patient returned from left foot 4th digit amputation around 1530 this afternoon, left foot wrapped and c/d/i. Left popliteal pulse normal, color of extremity normal. Patient has baseline neuropathy in feet. Patient denies pain.
[2025-05-02 16:55] LABS: Glucose - Point of Care 177 mg/dl (70-99)
[2025-05-02] MEDS: LIPITOR 40 MG PO (17:02)
[2025-05-02] MEDS: ASPIR LOW (ENTERIC COATED) 81 MG PO (17:02)
[2025-05-02] MEDS: NOVOLOG FLEXPEN 4 UNITS SC (17:05)
[2025-05-02 21:54] LABS: Glucose - Point of Care 340 mg/dl (70-99)
[2025-05-02] MEDS: LANTUS 0.18 UNITS SC (23:35)
[2025-05-03 03:10] VITALS: BP 163/60
[2025-05-03 03:25] LABS: Glucose - Point of Care 321 mg/dl (70-99)
[2025-05-03] MEDS: NOVOLOG FLEXPEN 4 UNITS SC ×2 (03:40→08:35)
[2025-05-03 07:17] VITALS: BP 156/56
--- NOTE | 2025-05-03 07:31 | W.PN.POD ---
Today's Communication
Today's Communication
stable for dc today
Assessment / Plan
-
s/p amp 4th toe left foot--stable for dc
rec po abx for 10 days upon dc
pt has clinda at home, if ok with ID and nephro
pt can pwb left foot in sx shoe
believe surg cure
pt to change bandage at home daily, dry on sutures and bacitracin on blister area
fu in office monday
will sign off, ok to DC today
Subjective
Chief Complaint
pt seen s/p amp 4th toe
no pain
no f/cardroom plastic card grader
dressing cdi
Subjective
vasc intact
derm sutures intact, resolving cellulitis, no pus
Objective
Temp Pulse Resp BP Pulse Ox
97.6 F 51 12 163/60 98
05/03/25 03:10 05/03/25 03:10 05/03/25 03:10 05/03/25 03:10 05/03/25 03:10
Vital Signs and Lab results were reviewed.
[2025-05-03 07:45] LABS: Glucose - Point of Care 303 mg/dl (70-99)
[2025-05-03] MEDS: NOVOLOG FLEXPEN-LOW RESISTANCE 4 UNITS SC (08:35)
[2025-05-03] MEDS: CATAPRES 0.1 MG PO (08:36)
[2025-05-03 09:05] LABS: Hematocrit 24.6 % (39.0-52.0); Hemoglobin 8.4 g/dL (13.0-18.0); Mean Corp Hgb Conc. 34.1 g/dL (33.0-37.0); Mean Corpuscular Volume 86.9 fL (80.0-94.0); Nucleated Red Blood Cells % 0 % (-); Platelet Count 176 10^3/uL (130-400); Red Cell Dist. Width 12.1 % (11.5-14.5)
--- NOTE | 2025-05-03 09:47 | W.PN.NEPH.PH ---
Today's Communication / Plan
-
Stable for discharge
Follow-up as scheduled with Dr. Asif on May 16
I would have him obtain a BMP later this week and fax to Dr. Asif
Assessment/Plan
-
74 yo man with hx IDDM, CKD IV (left AV fistula 10/15/24), diabetic neuropathy presents for worsening wound to left 4th toe.
Patient was seen by his Candy Decorator this morning, who referred him to the ER for operative intervention.
Impression.
Acute on chronic kidney disease stage IV. Creatinine 4.29 most recently November 2024 (follows with Dr. Asif)
Left toe osteo.
Type 2 diabetes.
Hypertension.
Matured AV fistula left upper arm
Plan.
No acute need for dialysis, no electrolyte, volume or uremic standpoint
mature AV fistula ready for use when needed.
I would discharge off Farxiga
Kidney function with modest improvement following IV fluid
Vancomycin renally dosed.
Stable for discharge with follow-up BMP fax to Dr. Asif next week
He has an appointment at our office on May 16
-
-
Date of Service: May 03, 2025
CC / HPI / ROS
-
Chief Complaint:
CKD stage IV
History of Present Illness:
Creatinine down to 4.4
Hemodynamically stable
Status post left fourth toe amputation
Review of Systems:
Nonoliguric
No chest pain or shortness of breath
Labs
-
Labs:
WBC 8.3 10^3/uL (4.8-10.8) 05/03/25 08:40
RBC 2.83 10^6/uL (4.70-6.10) L 05/03/25 08:40
Hgb 8.4 g/dL (13.0-18.0) L 05/03/25 08:40
Hct 24.6 % (39.0-52.0) L 05/03/25 08:40
Plt Count 176 10^3/uL (130-400) 05/03/25 08:40
eGFR 13.43 05/02/25 07:16
Albumin 4.3 g/dl (3.5-5.0) 05/01/25 13:29
Physical Exam
-
Vital Signs:
Vital Signs
Temp Pulse Resp BP Pulse Ox
97.8 F 53 16 156/56 98
05/03/25 07:17 05/03/25 07:17 05/03/25 07:17 05/03/25 07:17 05/03/25 07:17
Cardiovascular:: Regular rate and rhythm
Respiratory:: Bilateral: CTA
Lung Excursion:: Normal
Abdomen:: Nontender and Soft
Bowel Sounds:: Normal
Extremity Edema:: None: Bilateral:
Cespedes Catheter: No
[2025-05-03 10:04] LABS: Blood Urea Nitrogen 94 mg/dl (9-20); Calcium 8.2 mg/dl (8.4-10.2); Carbon Dioxide 20 mmol/L (22-30); Chloride 105 mmol/L (98-107); Estimated Creatinine Clearance 16 ml/min; Glucose 257 mg/dl (70-99); Potassium 4.7 mmol/L (3.5-5.1); Sodium 134 mmol/L (135-145); eGFR 13.07
--- NOTE | 2025-05-03 10:08 | PTOTSP ---
Chart reviewed. Spoke to patient. Patient notes that he 'has been through this before' and that he has been walking to and from the bathroom here without issues. He admits to stairs at home, but 'has a way of doing it' and feels that he will
have no issues returning home, and is eager to go home. At this time, patient is declining any skilled PT needs. Encouraged patient to continue mobilize while wearing the surgical shoe, which he has donned, and alert staff if he feels that his
mobility has changed prior to going home. At this time will sign off.
--- NOTE | 2025-05-03 10:23 | W.DCSUMMARY ---
Discharge Summary
Discharge Data
Date of Admission: 05/01/25
Date of Discharge: 05/03/25
Total time spent discharging patient (in min): 35
-
Pending Results: No
Hospital Course
Patient is 74 years old male with history of diabetes, CKD, presented to the hospital with worsening ulceration on the left fourth toe. Patient was diagnosed with osteomyelitis of the left fourth toe and he was started on IV antibiotics. Podiatry
and ID and nephrology were consulted. Patient was taken to the OR and podiatry did amputation of the left fourth toe. Patient also was seen by nephrology who initially held some of his medications but okay to restart upon discharge and follow-up
BMP as outpatient. Otherwise, patient hemodynamically stable and afebrile. He also participated with PT. He will be discharged in stable condition today.
Discharge duration: 35 minutes
Discharge Plan
-
Patient Disposition: Home (Routine Discharge)
Discharge Diagnosis/Procedures: Fourth toe osteomyelitis of left foot status post amputation fourth toe. Chronic kidney disease stage IV. Hypertension. Diabetes mellitus.
Diet: Diabetic, Carb Controlled
Activity: As tolerated
Blood Work: Please PCP to order CBC, BMP within 1 week
Referrals:
Charly Guardado DPM [Specified Professional Personl, Podiatry] - in one to two weeks
Sunday Regan MD [Family Provider, Family Practice] - in less than 1 week
Charly Asif MD [Active, Nephrology] - in two to four weeks
Prescriptions:
New
cephalexin 500 mg capsule
500 mg PO QID 10 Days Qty: 40 0RF
Continued
atorvastatin 40 MG tablet
40 mg PO QPM
insulin lispro [Humalog U-100 Insulin] 100 unit/mL Solution
8 sliding scale dose SC AC
dapagliflozin propanediol [Farxiga] 10 mg Tablet
10 mg PO DAILY
insulin glargine [Lantus Solostar U-100 Insulin] 100 unit/mL (3 mL) insulin pen
18 unit SC HS
clonidine HCl 0.1 MG tablet
0.1 mg PO TID
hydrochlorothiazide 25 mg tablet
25 mg PO DAILY
acetaminophen [Tylenol] 325 mg Tablet
325 mg PO DAILYPRN PRN (Reason: mild pain)
aspirin 81 mg Tablet,Delayed Release (Dr/Ec)
81 mg PO QPM
Discharge Orders:
Discharge Patient (As Directed); Ordered 05/03/25
Ordered By: Andi Griffith
Discharge Date and Time
Discharge Date/Time: 05/03/25 12:06
Print Language: ROMANSH
--- NOTE | 2025-05-03 11:08 | CM ---
Reviewed the chart notes and spoke with the patient at the bedside. Patient declining VN. Daughter to transport home.
[2025-05-03 11:23] VITALS: BP 169/76
--- NOTE | 2025-05-03 11:35 | W.PN.ID1 ---
Date of Service
Date of Service: May 03, 2025
Today's Communication
- Can transition Unasyn to cephalexin 500mg po qid x 10 days.
Assessment / Plan
Osteomyelitis of the L 4th digit
Diabetic Neuropathy
- 05/02 s/p surgical cure with amputation
- Cx's Staph aureus (PBP2a neg)
- Podiatry requesting dc on 10d of po abx.
- Can transition Unasyn to cephalexin 500mg po qid x 10 days.
Chief Complaint
-: Other (Osteo)
Subjective / Review of Systems
Going home today.
Vital Signs / Physical Exam
Vital Signs
Vital Signs
Temp Pulse Resp BP Pulse Ox
97.4 F 65 18 169/76 100
05/03/25 11:23 05/03/25 11:23 05/03/25 11:23 05/03/25 11:23 05/03/25 11:23
Physical Exam
Constitutional: No Acute Distress and Comfortable
Cardiovascular: Regular Rate and S1/S2
Pulmonary: Clear
Wound: Other (left foot dressing dry)
Objective Data
Lab Data
Lab Results
05/03/25 08:40
05/03/25 08:40
ESR 72 mm/hour (0-20) H 05/01/25 13:29
Estimated Creat Clear 16 ml/min 05/03/25 08:40
Total Bilirubin 0.5 mg/dl (0.2-1.3) 05/01/25 13:29
AST 19 U/L (17-59) 05/01/25 13:29
ALT 14 U/L (0-50) 05/01/25 13:29
Alkaline Phosphatase 66 U/L (38-126) 05/01/25 13:29
C-Reactive Protein 16.00 mg/L (0.0-10.00) H 05/01/25 13:29
Most recent labs reviewed.
Micro Results:
05/02/25 12:57 Wound Culture - Preliminary
Toe Staphylococcus aureus
Gram Stain - Preliminary
05/02/25 12:57 Tissue Culture - Preliminary
Toe Staphylococcus aureus
Gram Stain - Preliminary
05/01/25 13:29 Blood Culture - Preliminary
Blood/Venous No Growth in 24 hours- Final report to follow
05/01/25 13:29 Blood Culture - Preliminary
Blood/Venous No Growth in 24 hours- Final report to follow
05/02/25 12:57 Anaerobic Culture - Pending
Toe
Care Review
Plan reviewed with: Physician (Dr. Griffith)
--- NOTE | 2025-05-03 11:55 | PTCARENOTE ---
Pt. aware Dr. Morales changed antibiotics and verbally stated he understands instructions at time of discharge. Dr. Griffith to placed order and send script to pt. pharmacy per Dr. Morales.
--- NOTE | 2025-05-03 12:59 | W.PN.HOSP.TC ---
Today's Communication/Plan
-
Antibiotics. OR
Assessment / Plan
Assessment / Plan
Physical exam:
General: Acutely ill
HEENT: Normocephalic, Atraumatic and Moist Mucous Membranes
Respiratory: Clear to Auscultation; Negative Wheezes, Rales or Rhonchi
Cardiac: Regular Rhythm and S1/S2
GI: Soft, Nontender and Nondistended
Musculoskeletal: No Clubbing, No Cyanosis and No Edema. Fourth toe ulceration and erythema surrounding area.
Neuro: Awake, Alert and Oriented, no neurological deficit
Psych: Calm
A/P:
Left fourth digit infection and osteomyelitis:
Continue IV antibiotics, Unasyn
ID eval
Podiatry eval
Plan for the OR
Diabetes mellitus:
Insulin sliding scale
CKD stage IV:
Gentle IV fluid hydration
Nephrology consult received
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
DVT prophylaxis:
SCD
CODE STATUS:
Full code
Time spent 35-minutes
Anticipated Discharge: Within 24 hours
Subjective/Interval History
-
Date of Service: May 02, 2025
Late entry for date of service 05/02/2025. I saw patient yesterday morning and there was no new complaints except for mild foot discomfort.
Objective Data
-
Labs:
Laboratory Results
05/03/25
08:40
WBC 8.3
Hgb 8.4 L
Hct 24.6 L
Plt Count 176
Sodium 134 L
Potassium 4.7
Chloride 105
Carbon Dioxide 20 L
BUN 94 H
Creatinine 4.5 H*
Glucose 257 H
Calcium 8.2 L
Vital Signs:
Vital Signs
Temp Pulse Resp BP Pulse Ox
97.4 F 65 18 169/76 100
05/03/25 11:23 05/03/25 11:23 05/03/25 11:23 05/03/25 11:23 05/03/25 11:23
I&O
05/02/25 05/03/25 05/04/25
06:59 06:59 06:59
Intake Total 120 / 120 1380 / 1380
Balance 120 / 120 1380 / 1380
--- NOTE | 2025-05-03 13:05 | W.PN.HOSP.TC ---
Today's Communication/Plan
-
Discharge planning today
Assessment / Plan
Assessment / Plan
Physical exam:
General: Acutely ill
HEENT: Normocephalic, Atraumatic and Moist Mucous Membranes
Respiratory: Clear to Auscultation; Negative Wheezes, Rales or Rhonchi
Cardiac: Regular Rhythm and S1/S2
GI: Soft, Nontender and Nondistended
Musculoskeletal: No Clubbing, No Cyanosis and No Edema. Fourth toe ulceration and erythema surrounding area.
Neuro: Awake, Alert and Oriented, no neurological deficit
Psych: Calm
A/P:
Left fourth digit infection and osteomyelitis:
Change IV antibiotics to oral antibiotics for 10 more days as per ID and podiatry recommendation
ID eval appreciated
Podiatry did amputation of the left fourth digit yesterday 05/02
Staph aureus from tissue of the toe
Plan to discharge today
Diabetes mellitus:
Insulin sliding scale
CKD stage IV:
Stable
Gentle IV fluid hydration
Nephrology consult received
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
Nephrology okay to restart home medications
Hypertension:
Resume home antihypertensive
DVT prophylaxis:
SCD
CODE STATUS:
Full code
Time spent 35-minutes
Anticipated Discharge: Today
Subjective/Interval History
-
Date of Service: May 03, 2025
No new complaints. No chest pain or shortness of breath. Afebrile
Objective Data
-
Labs:
Laboratory Results
05/03/25
08:40
WBC 8.3
Hgb 8.4 L
Hct 24.6 L
Plt Count 176
Sodium 134 L
Potassium 4.7
Chloride 105
Carbon Dioxide 20 L
BUN 94 H
Creatinine 4.5 H*
Glucose 257 H
Calcium 8.2 L
Vital Signs:
Vital Signs
Temp Pulse Resp BP Pulse Ox
97.4 F 65 18 169/76 100
05/03/25 11:23 05/03/25 11:23 05/03/25 11:23 05/03/25 11:23 05/03/25 11:23
I&O
05/02/25 05/03/25 05/04/25
06:59 06:59 06:59
Intake Total 120 / 120 1380 / 1380
Balance 120 / 120 1380 / 1380
== END 2025-05-03 12:06 | disposition home or self-care (01) | DRG 617 ==
LOC: 4 EAST ACU 17:56
PROVIDERS: Physician Assistant; Specialist; ADMITTING PHYSICIAN Student in an Organized Health Care Education/Training Program; ATTENDING PHYSICIAN Hospitalist; CONSULT PHYSICIAN Internal Medicine Nephrology; CONSULT PHYSICIAN Podiatrist Foot Surgery; EMERGENCY PHYSICIAN Emergency Medicine; FAMILY PHYSICIAN Family Medicine; OTHER PHYSICIAN Student in an Organized Health Care Education/Training Program
PROC: 0Y6W0Z1 Detachment at Left 4th Toe, High, Open Approach (ICD-10-PCS; 2025-05-02)
DX: E11.69 Type 2 diabetes mellitus with other specified complication (principal); M86.172 Other acute osteomyelitis, left ankle and foot; E11.621 Type 2 diabetes mellitus with foot ulcer; L97.529 Non-pressure chronic ulcer of other part of left foot with unspecified severity; N18.4 Chronic kidney disease, stage 4 (severe); L03.032 Cellulitis of left toe; E11.22 Type 2 diabetes mellitus with diabetic chronic kidney disease; E11.319 Type 2 diabetes mellitus with unspecified diabetic retinopathy without macular edema; E11.40 Type 2 diabetes mellitus with diabetic neuropathy, unspecified; E78.00 Pure hypercholesterolemia, unspecified; I12.9 Hypertensive chronic kidney disease with stage 1 through stage 4 chronic kidney disease, or unspecified chronic kidney disease; Z79.4 Long term (current) use of insulin; Z79.82 Long term (current) use of aspirin; Z79.84 Long term (current) use of oral hypoglycemic drugs; Z91.199 Patient's noncompliance with other medical treatment and regimen due to unspecified reason
CPT/HCPCS: 73630; 73660; 80048; 80053; 82962; 83036; 83735; 85025; 85652; 86140; 87040; 87070; 87075; 87076; 87147; 87176; 87186; 87205; 88304; 88305; 88311; 96365; 96375; 99284

== ENCOUNTER 2025-05-27 11:17 | Outpatient (RCR) | payer MEDICARE, SELFPAY ==
[2025-05-13 11:44] VITALS: BP 188/55
[2025-05-13] MEDS: RETACRIT 20000 UNITS SC (11:58)
[2025-05-27 12:32] VITALS: BP 160/68
[2025-05-27] MEDS: RETACRIT 10000 UNITS SC (12:53)
== END 2025-05-28 09:28 | disposition home or self-care (01) ==
LOC: OID 11:17
PROVIDERS: ATTENDING PHYSICIAN Specialist; FAMILY PHYSICIAN Family Medicine
DX: N18.5 Chronic kidney disease, stage 5 (principal); D63.1 Anemia in chronic kidney disease; R80.9 Proteinuria, unspecified; E87.5 Hyperkalemia; E11.22 Type 2 diabetes mellitus with diabetic chronic kidney disease
CPT/HCPCS: 96372; Q5106

== ENCOUNTER 2025-06-26 13:22 | Outpatient (RCR) | payer MEDICARE, SELFPAY ==
[2025-06-12 13:23] LABS: Hematocrit 30.9 % (39.0-52.0); Hemoglobin 10.2 g/dL (13.0-18.0)
[2025-06-26 13:57] LABS: Hematocrit 28.3 % (39.0-52.0); Hemoglobin 9.4 g/dL (13.0-18.0)
[2025-06-26 14:00] VITALS: BP 197/64
[2025-06-26] MEDS: RETACRIT 10000 UNITS SC (14:39)
--- NOTE | 2025-06-26 15:11 | PTCARENOTE ---
Client presented for bloodwork and possible Retacrit shot. BP checked 3 times and each time the cleint's systolic blood pressure was in the 190s. Diastolic blood pressure consistently in the 60s. States he is on blood pressure medication and these
findings are 'normal' for him. Advised him to check his blood pressure at least twice a day for the next few days and if the systolic pressure remains elevated to call his physician. States that his physician is aware of his blood pressure findings.
== END 2025-06-27 08:58 | disposition home or self-care (01) ==
LOC: OID 13:22
PROVIDERS: ATTENDING PHYSICIAN Specialist; FAMILY PHYSICIAN Family Medicine
DX: N18.5 Chronic kidney disease, stage 5 (principal); D63.1 Anemia in chronic kidney disease; R80.9 Proteinuria, unspecified; E87.5 Hyperkalemia; E11.22 Type 2 diabetes mellitus with diabetic chronic kidney disease
CPT/HCPCS: 36415; 85014; 85018; 96372; Q5106

== ENCOUNTER 2025-07-24 08:11 | Outpatient (RCR) | payer MEDICARE, SELFPAY ==
[2025-07-10 10:18] LABS: Hematocrit 31.3 % (39.0-52.0); Hemoglobin 9.7 g/dL (13.0-18.0)
[2025-07-10 10:45] VITALS: BP 132/62
[2025-07-10] MEDS: RETACRIT 10000 UNITS SC (10:59)
[2025-07-24 08:40] LABS: Hematocrit 31.4 % (39.0-52.0); Hemoglobin 10.1 g/dL (13.0-18.0)
[2025-07-24 09:04] VITALS: BP 150/80
--- NOTE | 2025-07-24 10:02 | PTCARENOTE ---
retacrit held today 07/24/25 per MD. Patient will return in 2 weeks on monday08/08/25 for repeat H&H.
== END 2025-07-25 09:25 | disposition home or self-care (01) ==
LOC: OID 08:11
PROVIDERS: ATTENDING PHYSICIAN Specialist; FAMILY PHYSICIAN Family Medicine
DX: N18.4 Chronic kidney disease, stage 4 (severe) (principal); D63.1 Anemia in chronic kidney disease; R80.9 Proteinuria, unspecified; E87.5 Hyperkalemia; E11.22 Type 2 diabetes mellitus with diabetic chronic kidney disease
CPT/HCPCS: 36415; 85014; 85018; 96372; Q5106